=== PATIENT | male | born 1975 | race Hispanic/Latino ===

== ENCOUNTER 2018-03-16 14:35 | Emergency (ER) | payer SELFPAY ==
[2018-03-16] MEDS ORDERED: MORPHINE 4 MG/ML SYR ONE (15:31)
[2018-03-16] MEDS ORDERED: NA CHLORIDE 0.9% 1,000 ML ONE (15:31)
[2018-03-16] MEDS ORDERED: ONDANSETRON 4 MG/2 ML VIAL ONE (15:31)
[2018-03-16 15:56] LABS: Absolute Lymphocytes (CBC) 1.6 K/uL (0.7-4.9); Absolute Monocytes 0.7 K/uL (0.1-1.3); Absolute Neutrophil 7.7 K/uL (1.8-8.0); Eosinophils % 1.2 % (0-4.4); Hematocrit 47.9 % (39.6-49.0); Lymphocytes % 15.7 % (15.3-44.8); MCH 29.9 pg (27.0-35.0); MCV 90.5 fL (80-100); MPV 8.2 fL (7.6-11.3); Monocytes % 6.5 % (3.3-12.3)
[2018-03-16 16:10] LABS: ALT/SGPT 29 U/L (12-78); AST/SGOT 12 U/L (15-37); Albumin 3.6 g/dL (3.4-5.0); Alkaline Phosphatase 95 U/L (45-117); Amylase Level 17 U/L (25-115); BUN Blood Urea Nitrogen 12 mg/dL (7-18); Bicarbonate 27 mmol/L (21-32); Bilirubin Direct < 0.1 mg/dL (0-0.2); Bilirubin Total 0.4 mg/dL (0.2-1.0); Glucose Level 310 mg/dL (74-106); Lipase 87 U/L (73-393); Potassium 3.7 mmol/L (3.5-5.1); Protein, Total 7.6 g/dL (6.4-8.2); Sodium Level 135 mmol/L (136-145)
[2018-03-16 16:45] LABS: Blood Morphology Comment NOT SEEN (NOT SEEN); Platelet Estimate ADEQ
[2018-03-16 16:46] LABS: Urine Blood NEGATIVE (NEG); Urine Glucose 3+ (NEG); Urine Protein NEGATIVE (NEG); Urine pH 5.5 (5.0-7.0)
[2018-03-16 16:46] LABS: Urine Bacteria <20 /HPF (NONE SEEN); Urine Culture Reflex Order NOT NEEDED; Urine RBC <5 /HPF (NONE SEEN)
--- NOTE | 2018-03-16 17:56 | RAD REPORT ---
EXAM DESCRIPTION: CT - Abdomen Pelvis W Contrast - 03/16/2018 5:47 pm CLINICAL HISTORY: Diarrhea, vomiting, abdominal pain in the right upper quadrant and right lower blanca drant COMPARISON: None. TECHNIQUE: Biphasic, helical CT imaging of the abdomen and pelvis was performed following 100 ml non -ionic IV contrast. Oral contrast was given. All CT scans are performed using dose optimization technique as appropriate and may include automated exposure control or mA/KV adjustment according to patient size. FINDINGS: No suspicious findings in the lung bases. No pericardial thickening or effusion. Liver shows diffuse fatty infiltration pattern with no focal liver lesion. No spleen or pancreatic ac eduar finding. Gallbladder and biliary tree are also without suspicious finding. Gallstones can be occu lt CT imaging. Symmetric renal function is seen with no hydronephrosis or suspicious renal mass. No pyelonephritis o r acute renal parenchymal process. Urinary bladder, prostate gland and seminal vesicles are normal. N o adrenal abnormality. Anglin of the stomach are prominent likely due to limited oral contrast within the lumen. No edema or stranding in this region. Large and small bowel show no acute findings. Normal appendix is identified . No free air, free fluid or inflammatory stranding. No hernia, mass or bulky lymphadenopathy. No suspicious bony findings. IMPRESSION: Contrast enhanced CT abdomen and pelvis imaging shows no acute process. Fatty infiltration of the liver.
--- NOTE | 2018-03-16 19:02 | EDPHYS ---
Physician Documentation [facility] Name: Patric Kendall Age: 42 yrs Sex: Male : 1975 Arrival Date: 03/16/2018 Time: 14:38 Bed 17 Private MD: None, None ED Physician Flynn Villalta HPI: 03/16 15:14 This 42 yrs old Male presents to ER via Ambulatory with complaints of rh1 Nausea/Vomiting/Diarrhea, Weakness, Dizziness, Fever. 15:14 The patient presents to the emergency department with nausea, vomiting, 0 times today, rh1 2 times since yesterday, described as clear fluid, diarrhea, 1 times today, 4 times since yesterday, abdominal pain, of the umbilical area, described as steady, and does not radiate. Onset: The symptoms/episode began/occurred 3 day(s) ago. Possible causes: unknown, family member x 1 at home with diarrhea; visited [place] last weekend. The symptoms are aggravated by nothing. The symptoms are alleviated by nothing. Associated signs and symptoms: Pertinent positives: abdominal pain, anorexia, diarrhea, fever, nausea, vomiting, Pertinent negatives: dysuria, GI bleeding. Severity of symptoms: At their worst the symptoms were moderate in the emergency department the symptoms are unchanged. The patient has not experienced similar symptoms in the past. The patient has not recently seen a physician. Pt. reports began with abdominal pain and diarrhea approx. 3 days ago. His frequency of diarrhea has decreased, and has had single episode this am. He also had N/V, most recently yesterday, and has kept a small amount of liquid down today. Yesterday and today he has had fever, t - max at 101.8. Denies any hematemesis, blood in stools, urinary symptoms, chest pain, SOB.. Historical: - Allergies: 15:02 No Known Allergies; aj1 - Home Meds: 15:02 None [Active]; aj1 - PMHx: 15:02 None; aj1 - PSHx: 15:02 None; aj1 - Immunization history:: Adult Immunizations up to date. - Social history:: Smoking status: Patient/guardian denies using tobacco, Patient uses alcohol, weekly. claims drinking about a 6 pack/day. - Ebola Screening: : Patient denies travel to an Ebola-affected area in the 21 days before illness onset. ROS: 15:14 Cardiovascular: Negative for chest pain, palpitations, and edema, Respiratory: Negative rh1 for shortness of breath, cough, wheezing, and pleuritic chest pain. 15:14 Constitutional: Positive for fever, malaise, poor PO intake, Negative for 15:14 Neck: Negative for pain with movement, stiffness. 15:14 Abdomen/GI: Positive for abdominal pain, nausea, vomiting, and diarrhea, anorexia, Negative for hematemesis, black/tarry stool, rectal bleeding. 15:14 Back: Negative for decreased range of motion, pain at rest, pain with movement, radiated pain. 15:14 : Negative for urinary symptoms, small amounts. 15:14 Skin: Negative for diaphoresis, rash. 15:14 Neuro: Positive for dizziness, Negative for numbness, syncope, near syncope, tingling, weakness. 15:14 Eyes: Negative for blurry vision. rh1 Exam: 15:14 Constitutional: This is a well developed, well nourished patient who is awake, alert, rh1 and in no acute distress. Head/Face: Normocephalic, atraumatic. Neck: Trachea midline, and no cervical lymphadenopathy. Supple, full range of motion without nuchal rigidity. No Meningismus. Chest/axilla: Normal chest wall appearance and motion. Nontender with no deformity. No lesions are appreciated. Cardiovascular: Regular rate and rhythm with a normal S1 and S2. No gallops, murmurs, or rubs. No JVD. No pulse deficits. Respiratory: Lungs have equal breath sounds bilaterally, clear to auscultation. No rales, rhonchi or wheezes noted. No increased work of breathing. 15:14 Back: No spinal tenderness. No costovertebral tenderness. Full range of motion. Skin: Warm, dry with normal turgor. Normal color with no rashes, no lesions, and no evidence of cellulitis. 15:14 Abdomen/GI: Inspection: abdomen appears normal, bruising, is not seen, distension, is not seen, Bowel sounds: normal, in all quadrants, active, all quadrants, Palpation: soft, in all quadrants, mild abdominal tenderness, in the right upper quadrant and left upper quadrant, moderate abdominal tenderness, in the epigastric area, umbilical area, right lower quadrant and left lower quadrant, rebound tenderness, is not appreciated, involuntary guarding, is not appreciated, Indicators: McBurney's point is not tender, Hyman's sign is negative, Rovsing's sign is negative. 15:14 Neuro: Orientation: is normal, to person, place \T\ time. Mentation: is normal, lucid, able to follow commands, Motor: is normal, moves all fours, strength is 5/5 in all extremities, Sensation: is normal, no obvious gross deficits, numbness, is not appreciated, tingling, is not appreciated, Gait: is steady, at a normal pace, without difficulty. Vital Signs: 15:02 BP 129 / 90; Pulse 86; Resp 24; Temp 98.8; Pulse Ox 96% on R/A; Weight 97.07 kg; Height aj1 5 ft. 6 in. (167.64 cm); Pain 8/10; 16:10 BP 137 / 93; Pulse 80; Resp 16; Pulse Ox 97% on R/A; Pain 6/10; em 17:23 BP 113 / 74; Pulse 71; Resp 16; Pulse Ox 99% on R/A; Pain 0/10; em 18:12 BP 128 / 90; Pulse 72; Resp 18; Pulse Ox 100% on R/A; Pain 0/10; em 19:00 BP 133 / 88; Pulse 71; Resp 16; Temp 98(O); Pulse Ox 97% on R/A; Pain 0/10; bs1 15:02 Body Mass Index 34.54 (97.07 kg, 167.64 cm) aj1 MDM: 15:14 Patient medically screened. rh1 16:44 Response to treatment: the patient's symptoms have markedly improved after treatment, rh1 resting with eyes closed, no pain at this time. 18:54 Data reviewed: vital signs, nurses notes, lab test result(s), radiologic studies, CT rh1 scan, I have discussed the patient's presentation/case with the attending Emergency Department Physician; and as a result, I will discharge patient. Data interpreted: Pulse oximetry: on room air is 100 %. Interpretation: normal. Counseling: I had a detailed discussion with the patient and/or guardian regarding: the historical points, exam findings, and any diagnostic results supporting the discharge/admit diagnosis, lab results, radiology results, the need for outpatient follow up, a family practitioner, to return to the emergency department if symptoms worsen or persist or if there are any questions or concerns that arise at home. ED course: tolerates PO without difficulty, and reports no B[place], dizziness, abdominal pain, no further episodes of diarrhea; discussed elevated glucose, and dx of DM; we discussed diagnosis, and necessary dietary changes, treatment options including medications, and stressed the importance of establishing care with a PCP for continued follow up; reports she has several family members with DM, and is familiar with treatment; family practice clinic information provided. 03/16 15:23 Order name: Amylase, Serum; Complete Time: 16:15 1 03/16 15:23 Order name: Basic Metabolic Panel; Complete Time: 16:15 1 03/16 15:23 Order name: CBC with Diff; Complete Time: 16:50 1 03/16 15:23 Order name: Creatinine for Radiology; Complete Time: 16:15 1 03/16 15:23 Order name: Hepatic Function; Complete Time: 16:15 [facility] 03/16 15:23 Order name: Lipase; Complete Time: 16:15 [facility] 03/16 15:23 Order name: Urine Microscopic Only; Complete Time: 16:50 1 03/16 15:24 Order name: CT Abd/Pelvis - W/Contrast; Complete Time: 17:57 1 03/16 16:00 Order name: Glucose, Ancillary Testing; Complete Time: 16:15 [facility] 03/16 16:14 Order name: Urine Dipstick--Ancillary (enter results); Complete Time: 16:50 1 03/16 16:17 Order name: Acetone, Serum; Complete Time: 16:31 1 03/16 16:45 Order name: Manual Differential EDMS 03/16 15:23 Order name: IV Saline Lock; Complete Time: 15:50 1 03/16 15:23 Order name: Labs collected and sent; Complete Time: 15:49 1 03/16 15:23 Order name: Urine Dipstick-Ancillary (obtain specimen); Complete Time: 15:49 1 03/16 17:58 Order name: PO challenge; Complete Time: 18:11 rh1 Administered Medications: 15:45 Drug: NS 0.9% 1000 ml Route: IV; Rate: 1000 ml; Site: right antecubital; em 17:02 Follow up: IV Status: Completed infusion; IV Intake: 1000ml em 15:50 Drug: Zofran 4 mg Route: IVP; Site: right antecubital; ss 17:03 Follow up: Response: No adverse reaction; Nausea is decreased em 15:50 Drug: morphine 4 mg Route: IVP; Site: right antecubital; ss 17:03 Follow up: Response: No adverse reaction; Pain is decreased em Point of Care Testing: Blood Glucose: 16:02 Blood Glucose: 273 mg/dL; em Ranges: Critical Glucose Levels:Adult <50 mg/dl or >400 mg/dl <40 mg/dl or >180 mg/dl Disposition: 03/16/18 19:01 Discharged to Home. Impression: Unspecified abdominal pain, Nausea and vomiting, Diarrhea, unspecified, Fatty (change of) liver, not elsewhere classified, diabetes mellitus. - Condition is Stable. - Discharge Instructions: Abdominal Pain, Adult, Food Choices to Help Relieve Diarrhea, Adult, Type 2 Diabetes Mellitus, Adult, Diarrhea, Nausea and Vomiting. - Prescriptions for Metformin 500 mg Oral Tablet - take 1 tablet by ORAL route once daily for 7 days Then take 1 tablet with morning meals AND evening meals; 21 tablet. - Medication Reconciliation Form, Thank You Letter, Antibiotic Education, Prescription Opioid Use form. - Follow up: Private Physician; When: 1 - 2 days; Reason: Recheck today's complaints, Continuance of care, Re-evaluation by your physician. Follow up: Emergency Department; When: As needed; Reason: Fever > 102 F, If symptoms return, Trouble breathing, Worsening of condition. - Problem is new. - Symptoms have improved. Addendum: 03/20/2018 07:00 Co-signature as Attending Physician, Flynn Villalta MD. r n Signatures: Dispatcher [employer] Maria Eugenia Issa RN RN aj1 Kane Mccoy, SHINE WORKER SHINE WORKER Flynn Rocha MD MD rn Smirch, Shelby, RN RN ss Jones, Rachel, CLEMENT TILE EDGER 1 Jerrell Reardon RN RN bp Corrections: (The following items were deleted from the chart) 03/16 15:45 15:02 Social history: Smoking status: Patient/guardian denies using tobacco, ace 1 19:18 19:01 03/16/2018 19:01 Discharged to Home. Impression: Unspecified abdominal pain; bp Nausea and vomiting; Diarrhea, unspecified; Fatty (change of) liver, not elsewhere classified; diabetes mellitus. Condition is Stable. Forms are Medication Reconciliation Form, Thank You Letter, Antibiotic Education, Prescription Opioid Use. Follow up: Private Physician; When: 1 - 2 days; Reason: Recheck today's complaints, Continuance of care, Re-evaluation by your physician. Follow up: Emergency Department; When: As needed; Reason: Fever > 102 F, If symptoms return, Trouble breathing, Worsening of condition. Problem is new. Symptoms have improved. rh1
--- NOTE | 2018-03-16 19:02 | ER ---
Nurse's Notes [facility] Name: Patric Kendall Age: 42 yrs Sex: Male : 1975 Arrival Date: 03/16/2018 Time: 14:38 Bed 17 Private MD: None, None Diagnosis: Unspecified abdominal pain;Nausea and vomiting;Diarrhea, unspecified;Fatty (change of) liver, not elsewhere classified;diabetes mellitus Presentation: 03/16 15:00 Presenting complaint: states: "For 3 days he has been having diarrhea and throwing aj1 up and he has no appetite. Yesterday he started running fever and having a really bad headache and abdominal pain." Reports abdominal pain the umbilical area, dizziness. Transition of care: patient was not received from another setting of care. Onset of symptoms was March 13, 2018. Risk Assessment: Do you want to hurt yourself or someone else? Patient reports no desire to harm self or others. Initial Sepsis Screen: Does the patient meet any 2 criteria? No. Patient's initial sepsis screen is negative. Does the patient have a suspected source of infection? No. Patient's initial sepsis screen is negative. Care prior to arrival: None. 15:00 Method Of Arrival: Ambulatory aj1 15:00 Acuity: JAVAD 3 aj1 Triage Assessment: 15:02 General: Appears uncomfortable, Behavior is cooperative, flat. Pain: Pain currently is aj1 8 out of 10 on a pain scale. GI: Reports diarrhea, nausea, vomiting. Historical: - Allergies: 15:02 No Known Allergies; aj1 - Home Meds: 15:02 None [Active]; aj1 - PMHx: 15:02 None; aj1 - PSHx: 15:02 None; aj1 - Immunization history:: Adult Immunizations up to date. - Social history:: Smoking status: Patient/guardian denies using tobacco, Patient uses alcohol, weekly. claims drinking about a 6 pack/day. - Ebola Screening: : Patient denies travel to an Ebola-affected area in the 21 days before illness onset. Screenin:25 Abuse screen: Denies threats or abuse. Nutritional screening: No deficits noted. em Tuberculosis screening: No symptoms or risk factors identified. Fall Risk None identified. Assessment: 15:24 General: Appears in no apparent distress. distressed, Behavior is calm, cooperative, em Reports fever for 2-3 days. Pain: Complains of pain in abdomen Pain radiates to back Pain currently is 8 out of 10 on a pain scale. Quality of pain is described as squeezing, Pain began 2-3 days ago. Neuro: Level of Consciousness is awake, alert, obeys commands, Oriented to person, place, time, situation. Cardiovascular: Capillary refill < 3 seconds Patient's skin is warm and dry. Respiratory: Airway is patent Respiratory effort is even, unlabored, Respiratory pattern is regular, symmetrical. GI: Abdomen is flat, Reports diarrhea, nausea, Patient currently denies vomiting. : Urine is clear. EENT: No signs and/or symptoms were reported regarding the EENT system. Derm: Skin is intact, Skin is pink, warm \\T\\ dry. Musculoskeletal: Range of motion: intact in all extremities. 15:30 General: The previous assessment is accurate. Call light remains within reach. . ss 16:30 Reassessment: Patient appears in no apparent distress at this time. Patient and/or em family updated on plan of care and expected duration. Pain level reassessed. Patient is alert, oriented x 3, equal unlabored respirations, skin warm/dry/pink. Patient states feeling better. 17:05 Reassessment: Patient and/or family updated on plan of care and expected duration. Pain em level reassessed. Patient is alert, oriented x 3, equal unlabored respirations, skin warm/dry/pink. pending CT Patient denies pain at this time. 18:12 Reassessment: Patient appears in no apparent distress at this time. Patient and/or em family updated on plan of care and expected duration. Pain level reassessed. Patient is alert, oriented x 3, equal unlabored respirations, skin warm/dry/pink. Patient denies pain at this time. Patient states feeling better. Patient states symptoms have improved. 18:21 Reassessment: Patient appears in no apparent distress at this time. CLEMENT Hurt at em bedside discussing POC. 19:10 Reassessment: Report received from GILBERT Middleton. bs1 19:10 General: Appears in no apparent distress. Behavior is calm, cooperative. Pain: Denies bs1 pain. Neuro: Level of Consciousness is awake, alert, obeys commands, Oriented to person, place, time, situation. Cardiovascular: Denies chest pain, shortness of breath, Heart tones S1 S2 present Capillary refill < 3 seconds Patient's skin is warm and dry. Respiratory: Airway is patent Respiratory effort is even, unlabored, Breath sounds are clear bilaterally. GI: Abdomen is flat, Bowel sounds present X 4 quads. : No signs and/or symptoms were reported regarding the genitourinary system. EENT: No signs and/or symptoms were reported regarding the EENT system. Derm: Skin is intact, Skin is pink, warm \\T\\ dry. normal. Musculoskeletal: Circulation, motion, and sensation intact. Capillary refill < 3 seconds, Range of motion: intact in all extremities. 19:16 Reassessment: PT D/C HOME AMBULATORY WITH FAMILY, DX WITH DM2 AND NAUSEA/VOMITING. bp Vital Signs: 15:02 BP 129 / 90; Pulse 86; Resp 24; Temp 98.8; Pulse Ox 96% on R/A; Weight 97.07 kg; Height aj1 5 ft. 6 in. (167.64 cm); Pain 8/10; 16:10 BP 137 / 93; Pulse 80; Resp 16; Pulse Ox 97% on R/A; Pain 6/10; em 17:23 BP 113 / 74; Pulse 71; Resp 16; Pulse Ox 99% on R/A; Pain 0/10; em 18:12 BP 128 / 90; Pulse 72; Resp 18; Pulse Ox 100% on R/A; Pain 0/10; em 19:00 BP 133 / 88; Pulse 71; Resp 16; Temp 98(O); Pulse Ox 97% on R/A; Pain 0/10; bs1 15:02 Body Mass Index 34.54 (97.07 kg, 167.64 cm) aj1 ED Course: 14:38 Patient arrived in ED. sb2 14:38 None, None is Private Physician. sb2 15:02 Triage completed. aj1 15:02 Arm band placed on Patient placed in an exam room. aj1 15:09 Kane Mccoy LVN is Primary Nurse. em 15:14 Licha Pacheco NP is PHCP. rh1 15:14 Flynn Villalta MD is Attending Physician. rh1 15:25 Patient has correct armband on for positive identification. Placed in gown. Bed in low em position. Call light in reach. Side rails up X2. Adult w/ patient. 17:47 CT completed. Patient tolerated procedure well. Patient moved back from CT. bq 17:48 CT Abd/Pelvis - W/Contrast In Process Unspecified. EDMS 18:12 No provider procedures requiring assistance completed. em 19:16 IV discontinued, intact, bleeding controlled, No redness/swelling at site. Pressure bp dressing applied. Administered Medications: 15:45 Drug: NS 0.9% 1000 ml Route: IV; Rate: 1000 ml; Site: right antecubital; em 17:02 Follow up: IV Status: Completed infusion; IV Intake: 1000ml em 15:50 Drug: Zofran 4 mg Route: IVP; Site: right antecubital; ss 17:03 Follow up: Response: No adverse reaction; Nausea is decreased em 15:50 Drug: morphine 4 mg Route: IVP; Site: right antecubital; ss 17:03 Follow up: Response: No adverse reaction; Pain is decreased em Point of Care Testing: Blood Glucose: 16:02 Blood Glucose: 273 mg/dL; em Ranges: Intake: 17:02 IV: 1000ml; Total: 1000ml. em Outcome: 19:01 Discharge ordered by . rh1 19:17 Discharged to home ambulatory, with family. bp 19:17 Condition: stable 19:17 Discharge instructions given to patient, family, Instructed on discharge instructions, follow up and referral plans. medication usage, Demonstrated understanding of instructions, follow-up care, medications, Prescriptions given X 1. 19:18 Patient left the ED. bp Signatures: Dispatcher [employer] EDIA Maria Eugenia Ramirez RN RN aj1 Sigrid Hoang bq Kane Mccoy, ELECTRICAL PLUMBING SUPERVISOR ELECTRICAL PLUMBING SUPERVISOR em Fatmata Perry RN RN ss Licha Pacheco, DECAL APPLIER DECAL APPLIER rh1 Jerrell Reardon RN RN bp Roxanne Sanchez RN RN bs1 Cynthia Porras sb2 Corrections: (The following items were deleted from the chart) 15:45 15:02 Social history: Smoking status: Patient/guardian denies using tobacco, aj1 rh1 17:07 17:05 Reassessment: Patient and/or family updated on plan of care and expected em duration. Pain level reassessed. Patient is alert, oriented x 3, equal unlabored respirations, skin warm/dry/pink. Patient denies pain at this time. em
== END 2018-03-16 19:18 | disposition home or self-care (01) ==
LOC: ER 14:35
DX: R11.2 Nausea with vomiting, unspecified (principal); R19.7 Diarrhea, unspecified; K76.0 Fatty (change of) liver, not elsewhere classified; E11.9 Type 2 diabetes mellitus without complications
CPT/HCPCS: 36415; 74177; 80048; 80076; 81003; 81015; 82010; 82150; 82962; 83690; 85025; 96361; 96374; 96375; 99284; J2405; J7030; Q9967

== ENCOUNTER 2019-10-07 08:28 | Emergency (ER) | payer SELFPAY ==
[2019-10-07] MEDS ORDERED: IBUPROFEN 200 MG TAB PO ONE (09:44)
--- NOTE | 2019-10-07 09:54 | RAD REPORT ---
EXAM DESCRIPTION: Harris Zimmerman (2 Views)10/07/2019 9:45 am CLINICAL HISTORY: Cough COMPARISON: 2012 FINDINGS: The lungs appear clear of acute infiltrate. The heart is normal size IMPRESSION: No acute abnormalities displayed
[2019-10-07] MEDS ORDERED: OSELTAMIVIR 75 MG CAP ONE (10:32)
--- NOTE | 2019-10-07 10:34 | EDPHYS ---
Physician Documentation [facility] Name: Patric Kendall Age: 44 yrs Sex: Male : 1975 Arrival Date: 10/07/2019 Time: 08:31 Bed 19 Private MD: ED Physician Flynn Villalta HPI: 10/07 10:31 This 44 yrs old Male presents to ER via Wheelchair with complaints of Fever, kb Dizziness, Body Aches. 10:32 The patient or guardian reports cough, that is intermittent, described as mild, flu kb symptoms, low-grade fever, myalgias. Onset: The symptoms/episode began/occurred yesterday. Severity of symptoms: At their worst the symptoms were moderate, in the emergency department the symptoms are unchanged. Modifying factors: The symptoms are alleviated by nothing, the symptoms are aggravated by nothing. Associated signs and symptoms: Pertinent positives: fever. The patient has not experienced similar symptoms in the past. The patient has not recently seen a physician. Historical: - Allergies: 09:05 No Known Allergies; aa5 - PMHx: 09:05 None; aa5 - PSHx: 09:05 None; aa5 - Immunization history:: Immunization history: Flu vaccine is not up to date. - Social history:: Smoking status: Patient denies any tobacco usage or history of. - Ebola Screening: : No symptoms or risks identified at this time. ROS: 10:27 ENT: Negative for injury, pain, and discharge, Neck: Negative for injury, pain, and kb swelling, Cardiovascular: Negative for chest pain, palpitations, and edema, Abdomen/GI: Negative for abdominal pain, nausea, vomiting, diarrhea, and constipation, Back: Negative for injury and pain, MS/Extremity: Negative for injury and deformity, Skin: Negative for injury, rash, and discoloration. 10:27 Constitutional: Positive for body aches, chills, fatigue, fever, malaise. 10:27 Respiratory: Positive for cough. 10:27 Neuro: Positive for headache. Exam: 10:27 Constitutional: This is a well developed, well nourished patient who is awake, alert, kb and in no acute distress. Head/Face: Normocephalic, atraumatic. ENT: Nares patent. No nasal discharge, no septal abnormalities noted. Tympanic membranes are normal and external auditory canals are clear. Oropharynx with no redness, swelling, or masses, exudates, or evidence of obstruction, uvula midline. Mucous membranes moist. Neck: Trachea midline, no thyromegaly or masses palpated, and no cervical lymphadenopathy. Supple, full range of motion without nuchal rigidity, or vertebral point tenderness. No Meningismus. Chest/axilla: Normal chest wall appearance and motion. Nontender with no deformity. No lesions are appreciated. Cardiovascular: Regular rate and rhythm with a normal S1 and S2. No gallops, murmurs, or rubs. Normal PMI, no JVD. No pulse deficits. Respiratory: Lungs have equal breath sounds bilaterally, clear to auscultation and percussion. No rales, rhonchi or wheezes noted. No increased work of breathing, no retractions or nasal flaring. Abdomen/GI: Soft, non-tender, with normal bowel sounds. No distension or tympany. No guarding or rebound. No evidence of tenderness throughout. Skin: Warm, dry with normal turgor. Normal color with no rashes, no lesions, and no evidence of cellulitis. MS/ Extremity: Pulses equal, no cyanosis. Neurovascular intact. Full, normal range of motion. Neuro: Awake and alert, GCS 15, oriented to person, place, time, and situation. Cranial nerves II-XII grossly intact. Motor strength 5/5 in all extremities. Sensory grossly intact. Cerebellar exam normal. Normal gait. Vital Signs: 09:05 BP 112 / 72; Pulse 93; Resp 18 S; Temp 101.2(O); Pulse Ox 100% on R/A; Weight 88.9 kg aa5 (R); Height 5 ft. 6 in. (167.64 cm) (R); Pain 9/10; 10:35 Temp 99.2(O); ss 09:05 Body Mass Index 31.63 (88.90 kg, 167.64 cm) aa5 MDM: 09:27 Patient medically screened. kb 10:27 Data reviewed: vital signs, nurses notes. Data interpreted: Pulse oximetry: on room air kb is 100 %. Interpretation: normal. Counseling: I had a detailed discussion with the patient and/or guardian regarding: the historical points, exam findings, and any diagnostic results supporting the discharge/admit diagnosis, lab results, radiology results, the need for outpatient follow up, a family practitioner, to return to the emergency department if symptoms worsen or persist or if there are any questions or concerns that arise at home. 10/07 09:14 Order name: Flu; Complete Time: 10:15 kb 10/07 09:08 Order name: Chest Pa And Lat (2 Views) XRAY; Complete Time: 09:57 aa5 Administered Medications: 09:50 Drug: Ibuprofen 600 mg Route: PO; ss 10:33 Follow up: Response: No adverse reaction; Temperature is decreased ss 10:32 Drug: Tamiflu 75 mg Route: PO; ss 10:33 Follow up: Response: Medication administered at discharge. ss Disposition: 17:13 Co-signature as Attending Physician, Flynn Villalta MD. rn Disposition: 10/07/19 10:33 Discharged to Home. Impression: Influenza due to identified novel influenza A virus. - Condition is Stable. - Discharge Instructions: Influenza, Adult, [id number], Viral Respiratory Infection, [id number]. - Prescriptions for Tamiflu 75 mg Oral Capsule - take 1 capsule by ORAL route every 12 hours for 5 days; 10 capsule. - Medication Reconciliation Form, Thank You Letter, Antibiotic Education, Prescription Opioid Use, Work release form, Family Work Release form. - Follow up: Emergency Department; When: As needed; Reason: Worsening of condition. Follow up: Private Physician; When: 2 - 3 days; Reason: Recheck today's complaints, Continuance of care, Re-evaluation by your physician. Signatures: Dispatcher [employer] EDWV Selena Johnson, SUPERINTENDENT [employer]-C SUPERINTENDENT [employer]AL-Ckb Flynn Villalta MD MD rn Calderon, Audri, RN RN aa5 Fatmata Perry RN RN ss Corrections: (The following items were deleted from the chart) 10:55 10:33 10/07/2019 10:33 Discharged to Home. Impression: Influenza due to identified ss novel influenza A virus. Condition is Stable. Forms are Medication Reconciliation Form, Thank You Letter, Antibiotic Education, Prescription Opioid Use. Follow up: Emergency Department; When: As needed; Reason: Worsening of condition. Follow up: Private Physician; When: 2 - 3 days; Reason: Recheck today's complaints, Continuance of care, Re-evaluation by your physician. kb
--- NOTE | 2019-10-07 10:34 | ER ---
Nurse's Notes [facility] Name: Patric Kendall Age: 44 yrs Sex: Male : 1975 Arrival Date: 10/07/2019 Time: 08:31 Bed 19 Private MD: Diagnosis: Influenza due to identified novel influenza A virus Presentation: 10/07 09:03 Presenting complaint: Patient states: productive cough, headache, chills, and fever aa5 that began Sunday. Transition of care: patient was not received from another setting of care. Onset of symptoms was September 2019. Risk Assessment: Do you want to hurt yourself or someone else? Patient reports no desire to harm self or others. Initial Sepsis Screen: Does the patient meet any 2 criteria? HR > 90 bpm. Does the patient have a suspected source of infection? Yes: Productive cough/pneumonia. Care prior to arrival: None. 09:03 Method Of Arrival: Wheelchair aa5 09:03 Acuity: JAVAD 3 aa5 Historical: - Allergies: 09:05 No Known Allergies; aa5 - PMHx: 09:05 None; aa5 - PSHx: 09:05 None; aa5 - Immunization history:: Immunization history: Flu vaccine is not up to date. - Social history:: Smoking status: Patient denies any tobacco usage or history of. - Ebola Screening: : No symptoms or risks identified at this time. Screenin:35 Abuse screen: Denies threats or abuse. Denies injuries from another. Nutritional ss screening: No deficits noted. Tuberculosis screening: Never had TB. Fall Risk None identified. Assessment: 09:35 General: Appears uncomfortable, ill, Behavior is calm, cooperative, Reports chills for ss 1-2 days, fever for 1-2 days, feeling ill for 1-2 days, fatigue for 1-2 days. Pain: Complains of pain in general body aches Pain currently is 9 out of 10 on a pain scale. Quality of pain is described as aching. Neuro: Level of Consciousness is awake, alert, obeys commands, Oriented to person, place, time, situation, Speech is normal, Facial symmetry appears normal. Neuro: Reports dizziness. Cardiovascular: Capillary refill < 3 seconds is brisk in bilateral fingers. Respiratory: Airway is patent Respiratory effort is even, unlabored, Respiratory pattern is regular, symmetrical. GI: Patient currently denies diarrhea, nausea, vomiting. : No signs and/or symptoms were reported regarding the genitourinary system. EENT: Oral mucosa is moist. Derm: Skin is intact, is healthy with good turgor, Skin is pink, warm \T\ dry. normal. Musculoskeletal: Circulation, motion, and sensation intact. Range of motion: intact in all extremities. 10:54 Reassessment: Patient appears in no apparent distress at this time. Patient and/or ss family updated on plan of care and expected duration. Pain level reassessed. Vital Signs: 09:05 BP 112 / 72; Pulse 93; Resp 18 S; Temp 101.2(O); Pulse Ox 100% on R/A; Weight 88.9 kg aa5 (R); Height 5 ft. 6 in. (167.64 cm) (R); Pain 9/10; 10:35 Temp 99.2(O); ss 09:05 Body Mass Index 31.63 (88.90 kg, 167.64 cm) aa5 ED Course: 08:31 Patient arrived in ED. ag5 08:34 Sel[facility]C [facility] kb 08:34 Flynn Villalta MD is Attending Physician. kb 09:03 Arm band placed on. aa5 09:04 Triage completed. aa5 09:35 Fatmata Perry, CORTNEY is Primary Nurse. ss 09:35 Patient has correct armband on for positive identification. Bed in low position. Call ss light in reach. 09:38 Chest Pa And Lat (2 Views) XRAY In Process Unspecified. EDMS 10:54 No provider procedures requiring assistance completed. Patient did not have IV access ss during this emergency room visit. Administered Medications: 09:50 Drug: Ibuprofen 600 mg Route: PO; ss 10:33 Follow up: Response: No adverse reaction; Temperature is decreased ss 10:32 Drug: Tamiflu 75 mg Route: PO; ss 10:33 Follow up: Response: Medication administered at discharge. ss Outcome: 10:33 Discharge ordered by . kb 10:54 Discharged to home ambulatory. ss 10:54 Condition: good 10:54 Discharge instructions given to patient, family, Instructed on discharge instructions, follow up and referral plans. medication usage, Demonstrated understanding of instructions, follow-up care, medications, Prescriptions given X 1. 10:55 Patient left the ED. ss Signatures: Dispatcher [employer] Selena Burciaga, SHEREE-C BELL PERSON-Neeru Gavin, RN RN aa5 Fatmata Perry RN RN ss Han Myrick ag5
[2019-10-07 13:18] VITALS: BP 112/72; O2SAT 100
[2019-10-07 13:22] VITALS: TEMP 99.2
== END 2019-10-07 10:55 | disposition home or self-care (01) ==
LOC: ER 08:28
DX: J09.X2 Influenza due to identified novel influenza A virus with other respiratory manifestations (principal)
CPT/HCPCS: 71046; 87804; 99283

== ENCOUNTER 2021-02-11 13:53 | Emergency (ER) | payer SELFPAY ==
[2021-02-11 15:51] LABS: Absolute Lymphocytes (CBC) 1.4 K/uL (0.7-4.9); Basophils % 0.6 % (0-1.3); Hematocrit 47.5 % (39.6-49.0); Lymphocytes % 9.6 % (15.3-44.8); RBC Red Blood Cell Count 5.23 M/uL (4.33-5.43)
[2021-02-11] MEDS ORDERED: FAMOTIDINE 20 MG/2 ML VIAL IV ONE (15:52)
[2021-02-11] MEDS ORDERED: NA CHLORIDE 0.9% 1,000 ML ONE ×2 (15:52→17:24)
[2021-02-11] MEDS ORDERED: ONDANSETRON 4 MG/2 ML VIAL ONE (15:52)
[2021-02-11 15:55] LABS: Protime INR 1.15
[2021-02-11 16:08] LABS: ALT/SGPT 35 U/L (12-78); AST/SGOT 14 U/L (15-37); Albumin 4.9 g/dL (3.4-5.0); Alkaline Phosphatase 75 U/L (45-117); BUN Blood Urea Nitrogen 15 mg/dL (7-18); Bicarbonate 29 mmol/L (21-32); Bilirubin Direct 0.1 mg/dL (0-0.2); Bilirubin Total 0.6 mg/dL (0.2-1.0); Glucose Level 202 mg/dL (74-106); Magnesium 2.1 mg/dL (1.8-2.4); Potassium 4.4 mmol/L (3.5-5.1); Protein, Total 8.8 g/dL (6.4-8.2); Sodium Level 134 mmol/L (136-145); Troponin (Emerg Dept Use Only) < 0.02 ng/mL (0.0-0.045)
--- NOTE | 2021-02-11 17:11 | RAD REPORT ---
EXAM DESCRIPTION: Harris Zimmerman (2 Views)02/11/2021 4:44 pm CLINICAL HISTORY: Cough COMPARISON: 2019 FINDINGS: The lungs appear clear of acute infiltrate. The heart is normal size IMPRESSION: No acute abnormalities displayed
[2021-02-11 17:49] LABS: Urine Blood Negative (Negative); Urine Glucose Negative (Negative); Urine Protein Negative (Negative); Urine Specific Gravity 1.015 (1.005-1.030)
--- NOTE | 2021-02-11 17:55 | EDPHYS ---
Physician Documentation [facility] Name: Patric Kendall Age: 45 yrs Sex: Male : 1975 Arrival Date: 02/11/2021 Time: 13:59 Bed 14 Private MD: ED Physician Umang Spence HPI: 02/11 15:25 This 45 yrs old Male presents to ER via Ambulatory with complaints of Cough, cp Vomiting, Nausea. 15:45 The patient or guardian reports cough. cp 15:45 Associated signs and symptoms: Pertinent positives: nausea, vomiting, general weakness, cp Pertinent negatives: chest pain, diarrhea, fever, abdominal pain. Patient reports symptoms started 4 days ago. Historical: - Allergies: 14:09 No Known Allergies; ll1 - PMHx: 14:09 Diabetes - NIDDM; Hypertension; High Cholesterol; ll1 - PSHx: 14:09 None; ll1 - Immunization history:: Flu vaccine is not up to date. - Social history:: Smoking status: Patient denies any tobacco usage or history of. ROS: 15:30 Constitutional: Positive for body aches, Negative for chills, fever. cp 15:30 Eyes: Negative for injury, pain, redness, and discharge. cp 15:30 ENT: Positive for sinus congestion, sore throat, Negative for drainage from ear(s), ear pain, difficulty swallowing, difficulty handling secretions. 15:30 Cardiovascular: Negative for chest pain. 15:30 Respiratory: Positive for cough, Negative for shortness of breath, wheezing. 15:30 Abdomen/GI: Positive for nausea and vomiting, Negative for abdominal pain, diarrhea, constipation. 15:30 : Negative for urinary symptoms. 15:30 Skin: Negative for cellulitis, rash. 15:30 Neuro: Positive for headache, general weakness, Negative for altered mental status. 15:30 All other systems are negative. Exam: 15:35 Constitutional: The patient appears in no acute distress, alert, awake, non-toxic, well cp developed, well nourished. 15:35 Head/Face: Normocephalic, atraumatic. cp 15:35 Eyes: Periorbital structures: appear normal, Conjunctiva: normal, no exudate, no injection, Sclera: no appreciated abnormality, Lids and lashes: appear normal, bilaterally. 15:35 ENT: External ear(s): are unremarkable, Ear canal(s): are normal, clear, TM's: dullness, bilaterally, Nose: is normal, Mouth: Lips: moist, Oral mucosa: moist, Posterior pharynx: Airway: no evidence of obstruction, patent, Tonsils: with erythema, no enlargement, no exudate, erythema, that is mild, exudate, is not appreciated. 15:35 Neck: ROM/movement: is normal, is supple, no meningismus, no nuchal rigidity, Lymph nodes: no appreciated lymphadenopathy. 15:35 Chest/axilla: Inspection: normal, Palpation: is normal, no crepitus, no tenderness. 15:35 Cardiovascular: Rate: tachycardic, Rhythm: regular. 15:35 Respiratory: the patient does not display signs of respiratory distress, Respirations: normal, no use of accessory muscles, no retractions, labored breathing, is not present, Breath sounds: are clear throughout, no decreased breath sounds, no stridor, no wheezing. 15:35 Abdomen/GI: Inspection: abdomen appears normal, Palpation: abdomen is soft and non-tender, in all quadrants. 15:35 Skin: cellulitis, is not appreciated, no rash present. 15:35 Neuro: Orientation: to person, place \T\ time. Mentation: is normal, Motor: moves all fours, strength is normal. 15:59 ECG was reviewed by the Attending Physician. cp Vital Signs: 14:06 BP 106 / 77; Pulse 115; Resp 17; Temp 98.5; Pulse Ox 97% ; Weight 90.72 kg; Height 5 ll1 ft. 7 in. (170.18 cm); Pain 7/10; 15:36 BP 124 / 86; Pulse 92; Resp 16; Pulse Ox 97% on R/A; Pain 7/10; hb 17:30 BP 122 / 82; Pulse 82; Resp 16; Pulse Ox 99% on R/A; hb 14:06 Body Mass Index 31.32 (90.72 kg, 170.18 cm) ll1 MDM: 15:10 Patient medically screened. cp 16:00 Differential Diagnosis: Bronchitis Influenza Viral Syndrome Pneumonia Other sepsis, UTI.cp 17:52 Data reviewed: vital signs, nurses notes, lab test result(s), EKG, radiologic studies, cp plain films. 17:52 Test interpretation: by ED physician or midlevel provider: ECG, plain radiologic cp studies. Counseling: I had a detailed discussion with the patient and/or guardian regarding: the historical points, exam findings, and any diagnostic results supporting the discharge/admit diagnosis, lab results, radiology results, to return to the emergency department if symptoms worsen or persist or if there are any questions or concerns that arise at home. Response to treatment: the patient's symptoms have markedly improved after treatment, and as a result, I will discharge patient. 17:53 ED course: VSS. Patient reports symptoms improved after IV fluids and meds. Will cp discharge to home for continued monitoring. 02/11 15:18 Order name: Basic Metabolic Panel 02/11 15:18 Order name: CBC with Diff 02/11 15:18 Order name: LFT's; Complete Time: 16:42 02/11 16:42 Interpretation: Normal except: AST 14; TP 8.8; GLOB 3.9. 02/11 15:18 Order name: Magnesium; Complete Time: 16:42 02/11 15:18 Order name: PT-INR; Complete Time: 16:42 02/11 15:18 Order name: Troponin (emerg Dept Use Only); Complete Time: 16:42 02/11 15:18 Order name: Strep; Complete Time: 16:42 02/11 15:19 Order name: Basic Metabolic Panel; Complete Time: 16:42 [facility] 02/11 16:42 Interpretation: Normal except: NA 134; GLUC 202; CRE 1.34; GFR 58. 02/11 15:19 Order name: CBC with Automated Diff; Complete Time: 16:42 [facility] 02/11 16:43 Interpretation: Normal except: WBC 14.50; MONICA% 82.1; LYM% 9.6; NEUT A 11.9. 02/11 16:33 Order name: Throat Culture [facility] 02/11 16:43 Order name: Urine Microscopic Only 02/11 17:08 Order name: SARS-COV-2 RT PCR; Complete Time: 17:12 [facility] 02/11 15:18 Order name: EKG; Complete Time: 15:19 02/11 15:18 Order name: Cardiac monitoring; Complete Time: 15:42 02/11 15:18 Order name: EKG - Nurse/Tech; Complete Time: 15:49 02/11 15:18 Order name: IV Saline Lock; Complete Time: 15:42 02/11 15:18 Order name: Labs collected and sent; Complete Time: 15:42 02/11 15:18 Order name: O2 Per Protocol; Complete Time: 15:42 02/11 15:18 Order name: O2 Sat Monitoring; Complete Time: 15:42 02/11 15:58 Order name: XRAY Chest Pa And Lat (2 Views); Complete Time: 17:12 02/11 17:12 Interpretation: Report reviewed. 02/11 16:43 Order name: Urine Dipstick-Ancillary (obtain specimen); Complete Time: 17:51 02/11 17:03 Order name: PO challenge; Complete Time: 17:15 02/11 17:49 Order name: Urine Dipstick-Ancillary EDMS EC:59 Rate is 93 beats/min. Rhythm is regular. CA interval is normal. QRS interval is normal. cp QT interval is normal. Interpreted by me. Reviewed by me. Administered Medications: 15:49 Drug: Zofran (Ondansetron) 4 mg Route: IVP; Site: right antecubital; hb 16:51 Follow up: Response: No adverse reaction hb 15:49 Drug: Pepcid (famotidine) 20 mg Route: IVP; Site: right antecubital; hb 16:51 Follow up: Response: No adverse reaction hb 15:50 Drug: NS 0.9% 1000 ml Route: IV; Rate: 1 bolus; Site: right antecubital; hb 16:51 Follow up: Response: No adverse reaction; IV Status: Completed infusion; IV Intake: hb 1000ml 17:15 Drug: NS 0.9% 1000 ml Route: IV; Rate: 1 bolus; Site: right antecubital; hb Disposition: 02/12 09:46 Co-signature as Attending Physician, Umang Spence MD I agree with the assessment and kdr plan of care. Disposition: 02/11/21 17:54 Discharged to Home. Impression: Acute bronchitis, Nausea and vomiting. - Condition is Stable. - Discharge Instructions: Acute Bronchitis, Adult, Nausea and Vomiting, Adult. - Prescriptions for Zofran 4 mg Oral Tablet - take 1 tablet by ORAL route every 12 hours As needed; 20 tablet. Tessalon Perles 100 mg Oral Capsule - take 2 capsule by ORAL route every 8 hours As needed; 30 capsule. Zithromax Z- Wilder 250 mg Oral Tablet - take 1 tablet by ORAL route as directed for 5 days Day 1 - take two (2) tablets one time. Day 2, 3, 4 , 5 take one (1) tablet once daily.; 6 tablet. - Medication Reconciliation Form, Thank You Letter, Antibiotic Education, Prescription Opioid Use, Work release form form. - Follow up: Private Physician; When: 2 - 3 days; Reason: Worsening of condition. - Problem is new. - Symptoms have improved. Signatures: Dispatcher [employer] EDMS Umang Spence MD MD kdr Yuri Roldan PA PA cp Bell Villalba RN RN hb Delia Blake RN RN ll1 Corrections: (The following items were deleted from the chart) 02/11 16:27 15:19 CORONAVIRUS+MR.LAB.BRZ ordered. EDNM EDMS 16:28 15:19 Influenza Screen (A \T\ B)+BA.LAB.BRZ ordered. EDNM EDMS 18:50 17:54 02/11/2021 17:54 Discharged to Home. Impression: Acute bronchitis; Nausea and hb vomiting. Condition is Stable. Forms are Medication Reconciliation Form, Thank You Letter, Antibiotic Education, Prescription Opioid Use. Follow up: Private Physician; When: 2 - 3 days; Reason: Worsening of condition. Problem is new. Symptoms have improved. cp
--- NOTE | 2021-02-11 17:55 | ER ---
Nurse's Notes [facility] Name: Patric Kendall Age: 45 yrs Sex: Male : 1975 Arrival Date: 02/11/2021 Time: 13:59 Bed 14 Private MD: Diagnosis: Acute bronchitis;Nausea and vomiting Presentation: 02/11 14:06 Chief complaint: Patient states: Weak, fatigue, cough, N/V for 4 days. No fever. ll1 Sudafed helped a lot. Coronavirus screen: Client denies travel out of the [place] in the last 14 days. cough unrelated to allergies, fatigue, headache, muscle pain, nausea, sore throat, vomiting. Client presents with at least one sign or symptom that may indicate coronavirus-19. Ebola Screen: Patient denies travel to an Ebola-affected area in the 21 days before illness onset. No acute neurological deficit is noted. Initial Sepsis Screen: Does the patient meet any 2 criteria? HR > 90 bpm. No. Patient's initial sepsis screen is negative. Does the patient have a suspected source of infection? Yes: Acute abdominal pain. Risk Assessment: Do you want to hurt yourself or someone else? Patient reports no desire to harm self or others. Onset of symptoms was February 08, 2021. 14:06 Method Of Arrival: Ambulatory ll1 14:06 Acuity: JAVAD 3 ll1 Stroke Activation: Symptom onset > 6 hours Physician: Stroke Attending; Name: ; Notified At: ; Arrived At: Physician: Chief Stroke Resident; Name: ; Notified At: ; Arrived At: Physician: Stroke Resident; Name: ; Notified At: ; Arrived At: Physician: ED Attending; Name: ; Notified At: ; Arrived At: Physician: ED Resident; Name: ; Notified At: ; Arrived At: Historical: - Allergies: 14:09 No Known Allergies; ll1 - PMHx: 14:09 Diabetes - NIDDM; Hypertension; High Cholesterol; ll1 - PSHx: 14:09 None; ll1 - Immunization history:: Flu vaccine is not up to date. - Social history:: Smoking status: Patient denies any tobacco usage or history of. Screenin:52 Abuse screen: Denies threats or abuse. Denies injuries from another. Nutritional hb screening: No deficits noted. Tuberculosis screening: No symptoms or risk factors identified. Fall Risk None identified. Assessment: 15:36 General: Appears in no apparent distress. Behavior is calm, cooperative. Pain: Pain hb currently is 7 out of 10 on a pain scale. Neuro: Level of Consciousness is awake, alert, obeys commands, Oriented to person, place, time, situation. Cardiovascular: Patient's skin is warm and dry. Respiratory: Respiratory effort is even, unlabored, Respiratory pattern is regular, symmetrical. GI: Reports nausea. : No signs and/or symptoms were reported regarding the genitourinary system. EENT: No signs and/or symptoms were reported regarding the EENT system. Derm: Skin is pink, warm \T\ dry. Musculoskeletal: Reports pain all over. 16:30 Reassessment: Patient appears in no apparent distress at this time. Patient and/or hb family updated on plan of care and expected duration. Pain level reassessed. Patient is alert, oriented x 3, equal unlabored respirations, skin warm/dry/pink. 17:30 Reassessment: Patient appears in no apparent distress at this time. Patient and/or hb family updated on plan of care and expected duration. Pain level reassessed. Patient is alert, oriented x 3, equal unlabored respirations, skin warm/dry/pink. 18:15 Reassessment: Patient appears in no apparent distress at this time. Patient and/or hb family updated on plan of care and expected duration. Pain level reassessed. Patient is alert, oriented x 3, equal unlabored respirations, skin warm/dry/pink. Vital Signs: 14:06 BP 106 / 77; Pulse 115; Resp 17; Temp 98.5; Pulse Ox 97% ; Weight 90.72 kg; Height 5 ll1 ft. 7 in. (170.18 cm); Pain 7/10; 15:36 BP 124 / 86; Pulse 92; Resp 16; Pulse Ox 97% on R/A; Pain 7/10; hb 17:30 BP 122 / 82; Pulse 82; Resp 16; Pulse Ox 99% on R/A; hb 14:06 Body Mass Index 31.32 (90.72 kg, 170.18 cm) ll1 ED Course: 13:59 Patient arrived in ED. bp1 14:09 Triage completed. ll1 14:09 Arm band placed on. ll1 15:07 Yuri Roldan PA is PHCP. cp 15:07 Umang Spence MD is Attending Physician. cp 15:29 Bell Villalba, RN is Primary Nurse. hb 15:41 Inserted saline lock: 20 gauge in right antecubital area, using aseptic technique. dh4 Blood collected. Missed attempt(s): 20 gauge in right antecubital area. 15:52 Patient has correct armband on for positive identification. Bed in low position. Call hb light in reach. Side rails up X 1. 15:54 Basic Metabolic Panel Sent. hb 15:54 CBC with Diff Sent. hb 16:43 XRAY Chest Pa And Lat (2 Views) In Process Unspecified. EDMS 18:34 No provider procedures requiring assistance completed. IV discontinued, intact, hb bleeding controlled, No redness/swelling at site. Administered Medications: 15:49 Drug: Zofran (Ondansetron) 4 mg Route: IVP; Site: right antecubital; hb 16:51 Follow up: Response: No adverse reaction hb 15:49 Drug: Pepcid (famotidine) 20 mg Route: IVP; Site: right antecubital; hb 16:51 Follow up: Response: No adverse reaction hb 15:50 Drug: NS 0.9% 1000 ml Route: IV; Rate: 1 bolus; Site: right antecubital; hb 16:51 Follow up: Response: No adverse reaction; IV Status: Completed infusion; IV Intake: hb 1000ml 17:15 Drug: NS 0.9% 1000 ml Route: IV; Rate: 1 bolus; Site: right antecubital; hb Intake: 16:51 IV: 1000ml; Total: 1000ml. hb Outcome: 17:54 Discharge ordered by MD. cp 18:34 Discharged to home ambulatory, with family. hb 18:34 Condition: stable 18:34 Discharge instructions given to patient, family, Instructed on discharge instructions, follow up and referral plans. medication usage, Demonstrated understanding of instructions, follow-up care, medications, Prescriptions given X 3. 18:50 Patient left the ED. hb Signatures: Dispatcher [employer] EDMS Yuri Roldan PA PA cp Baxter, Heather, RN RN hb Bennett Sanchez dh4 Delia Blake RN RN ll1 [facility]
[2021-02-11 18:07] LABS: Urine Bacteria <20 /HPF (NONE SEEN); Urine RBC NONE SEEN /HPF (NONE SEEN)
[2021-02-11 18:57] VITALS: TEMP 98.5
[2021-02-11 19:00] VITALS: BP 122/82; O2SAT 99
--- NOTE | 2021-02-12 07:47 | EKG ---
Test Date: 2021-02-11 Test Time: 15:50:33 Interior Block Wirer: MARK MEASUREMENT RESULTS: Intervals: Rate: 93 AZ: 164 QRSD: 84 QT: 358 QTc: 445 [place]: P: 53 AZ: 164 QRS: 70 T: 33 INTERPRETIVE STATEMENTS: Normal sinus rhythm Normal ECG Compared to ECG 03/25/2013 19:30:36 T-wave abnormality no longer present Electronically Signed On 02-12-21 07:46:22 CDT by Schuyler Hernández
== END 2021-02-11 18:50 | disposition home or self-care (01) ==
LOC: ER 13:53
DX: J20.9 Acute bronchitis, unspecified (principal); R11.2 Nausea with vomiting, unspecified; I10 Essential (primary) hypertension; Z20.822 Contact with and (suspected) exposure to COVID-19
CPT/HCPCS: 36415; 71046; 80048; 80076; 81003; 81015; 83735; 84484; 85025; 85610; 87070; 87081; 93005; 96361; 96374; 96375; 99284; J2405; J7030; U0003

== ENCOUNTER 2022-04-05 17:13 | Emergency (ER) | payer SELFPAY ==
[2022-04-05 18:22] LABS: Absolute Lymphocytes (CBC) 2.1 K/uL (0.7-4.9); Hematocrit 53.2 % (39.6-49.0); Lymphocytes % 15.1 % (15.3-44.8); MCV 90.3 fL (80-100); MPV 8.2 fL (7.6-11.3); RBC Red Blood Cell Count 5.89 M/uL (4.33-5.43)
[2022-04-05 18:31] LABS: SARS-CoV-2 Antigen Rapid Res Negative (Negative)
[2022-04-05 18:35] LABS: Albumin 4.8 g/dL (3.4-5.0); Bilirubin Total 1.1 mg/dL (0.2-1.0); Potassium 4.8 mmol/L (3.5-5.1)
--- NOTE | 2022-04-05 19:22 | RAD REPORT ---
EXAM DESCRIPTION: CT - Head Brain Wo Cont - 04/05/2022 7:10 pm CLINICAL HISTORY: headache COMPARISON: HEAD BRAIN W O CONTRAST dated 03/25/2013 TECHNIQUE: All CT scans are performed using dose optimization technique as appropriate and may inclu de automated exposure control or mA/KV adjustment according to patient size. FINDINGS: No intracranial hemorrhage, hydrocephalus or extra-axial fluid collection.No areas of brai n edema or evidence of midline shift. The paranasal sinuses and mastoids are clear. The calvarium is intact. IMPRESSION: No acute intracranial abnormality.
[2022-04-05 19:58] LABS: Urine Blood Negative (Negative); Urine Glucose 3+ (Negative); Urine Protein 1+ (Negative); Urine Specific Gravity >=1.030 (1.005-1.030)
[2022-04-05] MEDS ORDERED: NA CHLORIDE 0.9% 1,000 ML ONE (20:05)
[2022-04-05] MEDS ORDERED: ONDANSETRON 4 MG/2 ML VIAL ONE (20:05)
--- NOTE | 2022-04-05 20:34 | RAD REPORT ---
EXAM DESCRIPTION: RAD - Chest Single View - 04/05/2022 8:24 pm CLINICAL HISTORY: COUGH COMPARISON: Chest Pa And Lat (2 Views) dated 02/11/2021; Chest Pa And Lat (2 Views) dated 10/07/2019; CHEST SINGLE VIEW dated 03/25/2013 FINDINGS: Lines: None. Lungs: No evidence of edema or pneumonia. Pleural: No significant pleural effusions or pneumothorax. Cardiac: The heart size is within normal limits. Bones: No acute fractures. Other: IMPRESSION: No acute cardiopulmonary disease.
[2022-04-05 20:41] LABS: Urine Bacteria 20-50 /HPF (<20); Urine Mucus 2+ /HPF (None Seen); Urine RBC <5 /HPF (None Seen)
--- NOTE | 2022-04-05 20:45 | ER ---
Nurse's Notes [facility] Name: Patric Kendall Age: 46 yrs Sex: Male : 1975 Arrival Date: 04/05/2022 Time: 17:15 Bed 28 Private MD: Diagnosis: Cramp and spasm;Dehydration;Vomiting, unspecified Presentation: 04/05 17:35 Chief complaint: Patient states: Pt reports abdominal and leg cramps and vomiting that [facility] began around 1100 this morning. Pt works outside but did not feel like he got overheated. Coronavirus screen: Vaccine status: Patient reports receiving the 2nd dose of the covid vaccine. Ebola Screen: Patient negative for fever greater than or equal to 101.5 degrees Fahrenheit, and additional compatible Ebola Virus Disease symptoms Patient denies exposure to infectious person. Patient denies travel to an Ebola-affected area in the 21 days before illness onset. 17:35 Method Of Arrival: Ambulatory [facility] 17:38 Initial Sepsis Screen: Does the patient meet any 2 criteria? No. Patient's initial [facility] sepsis screen is negative. Does the patient have a suspected source of infection? No. Patient's initial sepsis screen is negative. Risk Assessment: Do you want to hurt yourself or someone else? Patient reports no desire to harm self or others. Onset of symptoms was April 05, 2022 at 11:00. 17:38 Acuity: JAVAD 3 [facility] Triage Assessment: 17:41 General: Appears in no apparent distress. comfortable. Pain: Complains of pain in head [facility] Pain does not radiate. Pain currently is 7 out of 10 on a pain scale. Quality of pain is described as aching, Pain began gradually, Began around 1100 am with other symptoms. Neuro: No deficits noted. Reports headache frontal area. Historical: - Allergies: 17:39 No Known Allergies; [facility] - Home Meds: 17:39 Metformin Oral [Active]; Lisinopril Oral once daily [Active]; [facility] - PMHx: 17:39 Diabetes - NIDDM; High Cholesterol; Hypertension; [facility] - PSHx: 17:39 None; 6 - Immunization history:: Client reports receiving the 2nd dose of the Covid vaccine. - Social history:: Smoking status: Patient denies any tobacco usage or history of. - Family history:: not pertinent. - Hospitalizations: : No recent hospitalization is reported. Assessment: 20:38 General: Appears in no apparent distress. comfortable, well groomed, Behavior is calm, eb1 cooperative, appropriate for age, Reports abdominal cramping x2 days. Pain: Complains of pain in right lower quadrant and left lower quadrant Quality of pain is described as crampy. Neuro: No deficits noted. Cardiovascular: No deficits noted. Respiratory: No deficits noted. GI: No deficits noted. No signs and/or symptoms were reported involving the gastrointestinal system. 21:11 Reassessment: Patient appears in no apparent distress at this time. Patient is alert, eb1 oriented x 3, equal unlabored respirations, skin warm/dry/pink. Patient states feeling better. Patient states symptoms have improved. Vital Signs: 17:35 BP 117 / 88; Pulse 101; Resp 20; Temp 98.7; Pulse Ox 97% ; Weight 90.72 kg; Height 5 jh6 ft. 6 in. (167.64 cm); Pain 7/10; 19:44 BP 132 / 84; Pulse 86; Resp 20; Temp 98.6; Pulse Ox 98% ; eb1 17:35 Body Mass Index 32.28 (90.72 kg, 167.64 cm) jh6 ED Course: 17:15 Patient arrived in ED. mr 17:19 Papo Christian DO is Attending Physician. ms3 17:39 Triage completed. jh6 17:42 Arm band placed on left wrist. jh6 18:14 CBC with Diff Sent. mb7 18:14 Lipase Sent. mb7 18:14 CMP Sent. mb7 18:14 CPK Sent. mb7 18:14 Inserted saline lock: 20 gauge in left antecubital area, using aseptic technique. Blood mb7 collected. 19:04 Attending Physician role handed off by Ppao Christian DO rn 19:04 Flynn Villalta MD is Attending Physician. rn 19:12 CT Head Brain wo Cont In Process Unspecified. EDMS 20:26 XRAY Chest (1 view) In Process Unspecified. EDMS 20:37 Urine Microscopic Only Sent. eb1 20:39 Patient has correct armband on for positive identification. Bed in low position. Call eb1 light in reach. Side rails up X2. 21:11 Urine Culture Sent. eb1 Administered Medications: 20:01 Drug: NS 0.9% 1000 ml Route: IV; Rate: 1 bolus; Site: left antecubital; eb1 20:01 Drug: Zofran (Ondansetron) 4 mg Route: IVP; Site: left antecubital; eb1 20:01 Drug: NS 0.9% 1000 ml Route: IV; Rate: 1000 ml; Site: left antecubital; eb1 Outcome: 20:44 Discharge ordered by . rn 21:33 Patient left the ED. eb1 Signatures: Dispatcher [employer] ENRIKEAR Jyoti Marte Roman, MD MD rn Basinger, Emily, RN RN eb1 Papo Christian DO DO ms3 Edita Orta RN RN jh6 Jyoti Mitchell mb7
--- NOTE | 2022-04-05 20:45 | EDPHYS ---
Physician Documentation [facility] Name: Patric Kendall Age: 46 yrs Sex: Male : 1975 Arrival Date: 04/05/2022 Time: 17:15 Bed 28 Private MD: ED Physician Flynn Villalta HPI: 04/05 20:04 This 46 yrs old Male presents to ER via Ambulatory with complaints of Abd rn cramps,leg cramps, Weakness, Vomiting. 20:04 Pt reports 2-3 days of generalized fatigue and weakness, assoc with nausea/vomiting. NO rn fever. Works outdoors laying concrete. Also diabetic. NO focal neuro complaints. No diarrhea. NO known sick contacts. . Onset: The symptoms/episode began/occurred 3 day(s) ago. Severity of symptoms: At their worst the symptoms were moderate in the emergency department the symptoms are unchanged. The patient has experienced a previous episode. The patient has not recently seen a physician. Historical: - Allergies: 17:39 No Known Allergies; [address] Meds: 17:39 Metformin Oral [Active]; Lisinopril Oral once daily [Active]; [facility] PMHx: 17:39 Diabetes - NIDDM; High Cholesterol; Hypertension; [facility] PSHx: 17:39 None; [facility] - Immunization history:: Client reports receiving the 2nd dose of the Covid vaccine. - Social history:: Smoking status: Patient denies any tobacco usage or history of. - Family history:: not pertinent. - Hospitalizations: : No recent hospitalization is reported. ROS: 20:04 Constitutional: Negative for fever, + chills and myalgias. Eyes: Negative for injury, rn pain, redness, and discharge, Neck: Negative for injury, pain, and swelling, Cardiovascular: Negative for chest pain, palpitations, and edema, Respiratory: Negative for shortness of breath, cough, wheezing, and pleuritic chest pain, Abdomen/GI: + nausea/vomiting, negative for abd pain Back: Negative for injury and pain, MS/Extremity: Negative for injury and deformity, Skin: Negative for injury, rash, and discoloration, Neuro: Negative for numbness, tingling, and seizure. Exam: 20:04 Constitutional: This is a well developed, well nourished patient who is awake, alert, rn and in no acute distress. Head/Face: Normocephalic, atraumatic. Eyes: Pupils equal round and reactive to light, extra-ocular motions intact. Periorbital areas with no swelling, redness, or edema. ENT: dry MM Neck: Trachea midline, no thyromegaly or masses palpated, and no cervical lymphadenopathy. Supple, full range of motion without nuchal rigidity, or vertebral point tenderness. No Meningismus. Cardiovascular: Tachycardic, regular Respiratory: No increased work of breathing, no retractions or nasal flaring. Abdomen/GI: Soft, non-tender Skin: Warm, dry MS/ Extremity: Pulses equal, no cyanosis. Neuro: Awake and alert, GCS 15, oriented to person, place, time, and situation. Cranial nerves II-XII grossly intact. Motor strength 5/5 in all extremities. Sensory grossly intact. Cerebellar exam normal. Normal gait. Vital Signs: 17:35 BP 117 / 88; Pulse 101; Resp 20; Temp 98.7; Pulse Ox 97% ; Weight 90.72 kg; Height 5 jh6 ft. 6 in. (167.64 cm); Pain 7/10; 19:44 BP 132 / 84; Pulse 86; Resp 20; Temp 98.6; Pulse Ox 98% ; eb1 17:35 Body Mass Index 32.28 (90.72 kg, 167.64 cm) jh6 MDM: 17:42 Patient medically screened. ms3 20:42 Differential Diagnosis viral syndrome, COVID, heat exhaustion, DKA, hyperglycemia, rn dehydration. Data reviewed: vital signs, nurses notes, lab test result(s), radiologic studies, CT scan, plain films, and as a result, I will discharge patient. Counseling: I had a detailed discussion with the patient and/or guardian regarding: the historical points, exam findings, and any diagnostic results supporting the discharge/admit diagnosis, lab results, radiology results, the need for outpatient follow up, to return to the emergency department if symptoms worsen or persist or if there are any questions or concerns that arise at home. Response to treatment: the patient's symptoms have mildly improved after treatment, and as a result, I will discharge patient. Special discussion: I discussed with the patient/guardian in detail that at this point there is no indication for admission to the hospital. It is understood, however, that if the symptoms persist or worsen the patient needs to return immediately for re-evaluation. ED course: Patient improved, repeat abd exam benign, neg ct head, normal CXR, COVID neg, recommend oral rehydration and given return precautions. Normal neuro exam. . 04/05 17:43 Order name: CBC with Diff; Complete Time: 19:01 ms3 04/05 17:43 Order name: CMP; Complete Time: 19:01 ms3 04/05 17:43 Order name: Lipase; Complete Time: 19:01 ms3 04/05 17:43 Order name: Urine Microscopic Only; Complete Time: 20:42 ms3 04/05 17:43 Order name: CPK; Complete Time: 19:01 ms3 04/05 17:55 Order name: SARS RAPID; Complete Time: 19:01 jl7 04/05 17:43 Order name: CT Head Brain wo Cont; Complete Time: 19:42 ms3 04/05 17:43 Order name: IV Saline Lock; Complete Time: 18:14 ms3 04/05 19:58 Order name: Urine Dipstick-Ancillary; Complete Time: 20:07 EDMS 04/05 20:08 Order name: XRAY Chest (1 view); Complete Time: 20:42 rn 04/05 20:44 Order name: Urine Culture EDMS 04/05 17:43 Order name: Labs collected and sent; Complete Time: 18:14 ms3 04/05 17:43 Order name: Urine Dipstick-Ancillary (obtain specimen); Complete Time: 20:01 ms3 Administered Medications: 20:01 Drug: NS 0.9% 1000 ml Route: IV; Rate: 1 bolus; Site: left antecubital; eb1 20:01 Drug: Zofran (Ondansetron) 4 mg Route: IVP; Site: left antecubital; eb1 20:01 Drug: NS 0.9% 1000 ml Route: IV; Rate: 1000 ml; Site: left antecubital; eb1 Disposition Summary: 04/05/22 20:44 Discharge Ordered Location: Home rn Problem: new rn Symptoms: have improved rn Condition: Stable rn Diagnosis - Cramp and spasm rn - Dehydration rn - Vomiting, unspecified rn Followup: rn - With: Private Physician - When: As needed - Reason: Recheck today's complaints, Re-evaluation by your physician Discharge Instructions: - Discharge Summary Sheet rn - Dehydration, Adult rn - Muscle Cramps and Spasms rn - Nausea and Vomiting, Adult rn Forms: - Medication Reconciliation Form rn - Thank You Letter rn - Antibiotic senior internet sales consultant - Prescription Opioid Use rn Prescriptions: - ondansetron 4 mg Oral tablet,disintegrating - take 1 tablet by ORAL route every 8 hours As needed; 15 tablet; Refills: 0, rn Product Selection Permitted Signatures: Dispatcher [employer] EDFlynn James MD MD rn Basinger, Emily, RN RN eb1 Papo Christian DO DO ms3 Edita Orta RN RN jh6
[2022-04-05 21:47] VITALS: BP 132/84; TEMP 98.6; O2SAT 98
== END 2022-04-05 21:33 | disposition home or self-care (01) ==
LOC: ER 17:13
DX: E86.0 Dehydration (principal); R25.2 Cramp and spasm; Z20.822 Contact with and (suspected) exposure to COVID-19; E11.9 Type 2 diabetes mellitus without complications; I10 Essential (primary) hypertension
CPT/HCPCS: 36415; 70450; 71045; 80053; 81003; 81015; 82550; 83690; 85025; 87086; 87088; 87811; J2405; J7030

== ENCOUNTER 2023-01-10 20:40 | Observation (INO) | payer SELFPAY ==
[2023-01-11 00:04] LABS: Absolute Lymphocytes (CBC) 1.9 K/uL (0.7-4.9); Hematocrit 44.7 % (39.6-49.0); Lymphocytes % 23.4 % (15.3-44.8); MCV 90.7 fL (80-100); MPV 7.6 fL (7.6-11.3); RBC Red Blood Cell Count 4.93 M/uL (4.33-5.43)
[2023-01-11 00:18] LABS: Albumin 3.6 g/dL (3.4-5.0); Bilirubin Total 0.3 mg/dL (0.2-1.0); Magnesium 1.8 mg/dL (1.6-2.4); Potassium 4.2 mEq/L (3.5-5.1); Protein, Total 7.5 g/dL (6.4-8.2)
[2023-01-11 00:28] LABS: Specific Gravity 1.021 (1.005-1.030); Urine Bilirubin NEGATIVE (Negative); Urine Blood Negative (Negative); Urine Clarity Clear (Clear); Urine Color Light-Yellow (Yellow); Urine Glucose 4+ (Negative); Urine Protein NEGATIVE (Negative); Urine Urobilinogen Normal (Normal)
--- NOTE | 2023-01-11 01:46 | ER ---
Nurse's Notes [facility] Name: Patric Ashley Age: 47 yrs Sex: Male : 1975 Arrival Date: 01/10/2023 Time: 20:40 Bed 16 Private MD: Diagnosis: Abdominal pain, Generalized Presentation: 01/10 21:07 Chief complaint: Patient states: abdominal swelling and pain began off and on since kl being seen here on Sunday. Coronavirus screen: Vaccine status: Patient reports receiving the 2nd dose of the covid vaccine. Ebola Screen: Patient negative for fever greater than or equal to 101.5 degrees Fahrenheit, and additional compatible Ebola Virus Disease symptoms. Initial Sepsis Screen: Does the patient meet any 2 criteria? No. Patient's initial sepsis screen is negative. Does the patient have a suspected source of infection? No. Patient's initial sepsis screen is negative. Risk Assessment: Do you want to hurt yourself or someone else? Patient reports no desire to harm self or others. 21:07 Method Of Arrival: Ambulatory 21:07 Acuity: JAVAD 3 01/11 00:00 Onset of symptoms was January 11, 2023. ha1 Triage Assessment: 01/10 21:10 General: Appears uncomfortable, well groomed, well developed, Behavior is calm, kl cooperative. Pain: Complains of pain in abdomen Pain currently is 9 out of 10 on a pain scale. GI: Reports upper abdominal pain, tolerance of fluids, tolerance of food. Historical: - Allergies: 21:09 No Known Allergies; kl - Home Meds: 21:09 lisinopril Oral once daily [Active]; Metformin Oral [Active]; kl - PMHx: 21:09 Diabetes - NIDDM; High Cholesterol; Hypertension; kl - Immunization history:: Adult Immunizations up to date. - Social history:: Smoking status: Patient denies any tobacco usage or history of. Screenin/27 01:18 [facility] ED Fall Risk Assessment (Adult) History of falling in the last 3 months, including since admission No falls in past 3 months (0 pts) Confusion or Disorientation No (0 pts) Intoxicated or Sedated No (0 pts) Impaired Gait No (0 pts) Mobility Assist Device Used No (0 pt) Altered Elimination No (0 pt) Score/Fall Risk Level 0 - 2 = Low Risk Oriented to surroundings, Maintained a safe environment. Abuse screen: Denies threats or abuse. Nutritional screening: No deficits noted. Tuberculosis screening: No symptoms or risk factors identified. Assessment: 01:18 Reassessment: Patient appears in no apparent distress at this time. Patient and/or kl family updated on plan of care and expected duration. Pain level reassessed. Patient states feeling better. Patient states symptoms have improved. 02:30 Reassessment: Patient and/or family updated on plan of care and expected duration. Pain ha1 level reassessed. Patient is alert, oriented x 3, equal unlabored respirations, skin warm/dry/pink. General:. 02:30 General: Appears comfortable, Behavior is calm, cooperative. Pain: Complains of pain in ha1 left lower quadrant Pain does not radiate. Pain currently is 5 out of 10 on a pain scale. Neuro: Level of Consciousness is awake, alert, obeys commands, Oriented to person, place, time, situation. Cardiovascular: Heart tones S1 S2 present Capillary refill Rhythm is sinus rhythm. GI: Abdomen is flat, non-distended, Bowel sounds present X 4 quads. Abdomen is tender to palpation in left lower quadrant Reports lower abdominal pain. 03:34 GI: Bowel sounds present X 4 quads. Abdomen is tender to palpation in left lower ha1 quadrant. Vital Signs: 01/10 21:07 BP 130 / 83; Pulse 90; Resp 18; Temp 99(TE); Pulse Ox 97% on R/A; Weight 90.72 kg (R); Height 5 ft. 8 in. ; Pain 9/10; 01/11 01:18 BP 139 / 98; Pulse 78; Resp 18; Pulse Ox 99% on R/A; kl 02:50 BP 117 / 81; Pulse 71; Resp 18 S; Pulse Ox 98% on R/A; ha1 01/10 21:07 Body Mass Index 30.41 (90.72 kg, 172.72 cm) 01/10 21:07 Pain Scale: Adult ED Course: 01/10 20:44 Patient arrived in ED. mr 21:09 Triage completed. 21:10 Yuri Roldan PA is PHCP. 21:10 Yuri Bey MD is Attending Physician. 01/11 00:00 Inserted saline lock: 20 gauge in right antecubital area, using aseptic technique. ha1 Blood collected. inserted by CORTNEY Mata. 00:01 CBC with Diff Sent. kl 00:01 Lipase Sent. kl 00:01 Urinalysis w/ reflexes Sent. kl 00:42 CT Abd/Pelvis - IV Contrast Only In Process Unspecified. EDMS 01:19 Patient has correct armband on for positive identification. Placed in gown. Call light kl in reach. Side rails up X2. 01:45 Ronen Sterling FNP-C is Hospitalizing Provider. cp 02:07 Ptt, Activated Sent. kl 02:07 PT-INR Sent. kl 02:07 Blood Culture Adult (2) Sent. kl 02:30 Report received from CORTNEY Mata. ha1 02:51 Marixa Vizcaino RN is Primary Nurse. ha1 03:34 No provider procedures requiring assistance completed. Patient admitted, IV remains in ha1 place. 03:35 Patient notified of wait time. ha1 Administered Medications: 00:05 Drug: Ondansetron IVP 4 mg Route: IVP; Site: right antecubital; kl 00:10 Drug: morphine IVP or IV 2 mg Route: IVP; Infused Over: 4 mins; Site: right forearm; kl 00:19 Drug: NS 0.9% IV 1000 ml Route: IV; Rate: 1 bolus; Site: right antecubital; kl 06:01 Not Given (Physician Discretion): morphine IVP or IV 2 mg IVP once over 4 mins ha1 Medication: 03:34 VIS not applicable for this client. ha1 Outcome: 01:46 Decision to Hospitalize by Provider. cp 03:34 Admitted to ER Hold. Please see [facility] for further documentation. ha1 03:34 Condition: stable 03:34 Discharge instructions given to patient, Instructed on the need for admit, Demonstrated understanding of instructions. 08:04 Patient left the ED. ko1 Signatures: Dispatcher [employer] EDMS Merry Blake RN RN kl Rivera, Mary mr Page, Corey, PA PA cp Marixa Vizcaino RN RN ha1 Jennifer Cee RN RN ko1
--- NOTE | 2023-01-11 01:46 | EDPHYS ---
Physician Documentation [facility] Name: Patric Ashley Age: 47 yrs Sex: Male : 1975 Arrival Date: 01/10/2023 Time: 20:40 Bed 16 Private MD: ED Physician Yuri Bey HPI: 01/10 23:20 This 47 yrs old Male presents to ER via Ambulatory with complaints of cp Abdominal Pain, Flank Pain. 23:20 The patient presents with abdominal pain. cp 23:20 Onset: The symptoms/episode began/occurred several weeks ago. The symptoms radiate to cp both flanks. Associated signs and symptoms: Pertinent positives: chills, Pertinent negatives: blood in stools, chest pain, constipation, diarrhea, fever, shortness of breath, testicular pain. The symptoms are described as constant. Severity of pain: in the emergency department the pain is unchanged despite home interventions. 23:20 Patient seen in this ED 12-24-2022 for abdominal pain. Reports finishing prescribed cp antibiotic and symptoms improving. Pain and swelling returned last week and is worse today. Historical: - Allergies: 21:09 No Known Allergies; kl - Home Meds: 21:09 lisinopril Oral once daily [Active]; Metformin Oral [Active]; kl - PMHx: 21:09 Diabetes - NIDDM; High Cholesterol; Hypertension; kl - Immunization history:: Adult Immunizations up to date. - Social history:: Smoking status: Patient denies any tobacco usage or history of. ROS: 23:25 Constitutional: Positive for chills, Negative for fever, poor PO intake. cp 23:25 Eyes: Negative for injury, pain, redness, and discharge. cp 23:25 Cardiovascular: Negative for chest pain, palpitations. 23:25 Respiratory: Negative for cough, shortness of breath, wheezing. 23:25 Abdomen/GI: Positive for abdominal pain, abdominal distension, Negative for vomiting, diarrhea, constipation. 23:25 : Positive for flank pain, Negative for urinary symptoms, hematuria, pelvic pain, cp testicular pain 23:25 Skin: Negative for cellulitis. 23:25 Neuro: Negative for altered mental status, dizziness, headache, numbness, weakness. 23:25 All other systems are negative. cp Exam: 23:30 Constitutional: The patient appears in no acute distress, alert, awake, cp non-diaphoretic, non-toxic, well developed, well nourished, uncomfortable, overweight 23:30 Head/Face: Normocephalic, atraumatic. cp 23:30 Eyes: Periorbital structures: appear normal, Conjunctiva: normal, no exudate, no cp injection, Sclera: no appreciated abnormality, Lids and lashes: appear normal, bilaterally. 23:30 ENT: External ear(s): are unremarkable, Nose: is normal, Mouth: Lips: moist, Oral mucosa: pink and intact, moist, Posterior pharynx: is normal, airway is patent, no erythema, no exudate. 23:30 Chest/axilla: Inspection: normal. cp 23:30 Cardiovascular: Rate: normal, Rhythm: regular. 23:30 Respiratory: the patient does not display signs of respiratory distress, Respirations: normal, no use of accessory muscles, no retractions, labored breathing, is not present, Breath sounds: are clear throughout, no decreased breath sounds, no stridor, no wheezing. 23:30 Abdomen/GI: Inspection: distension, that is mild, Bowel sounds: active, all quadrants, Palpation: soft, in all quadrants, moderate abdominal tenderness, in the anterior aspect of left lateral abdomen, posterior aspect of right lateral abdomen, right upper quadrant and left upper quadrant, rebound tenderness, is not appreciated, voluntary guarding, is elicited in the anterior aspect of left lateral abdomen, anterior aspect of right lateral abdomen, right upper quadrant and left upper quadrant. 23:30 Back: CVA tenderness, is absent. 23:30 Skin: on the lower abdomen. 23:30 Neuro: Orientation: to person, place \T\ time. Mentation: is normal, Motor: moves all fours, strength is normal, Gait: is steady. 01/11 03:18 ECG was reviewed by the Attending Physician. cp Vital Signs: 01/10 21:07 BP 130 / 83; Pulse 90; Resp 18; Temp 99(TE); Pulse Ox 97% on R/A; Weight 90.72 kg (R); kl Height 5 ft. 8 in. ; Pain 9/10; 01/11 01:18 BP 139 / 98; Pulse 78; Resp 18; Pulse Ox 99% on R/A; kl 02:50 BP 117 / 81; Pulse 71; Resp 18 S; Pulse Ox 98% on R/A; ha1 01/10 21:07 Body Mass Index 30.41 (90.72 kg, 172.72 cm) kl 01/10 21:07 Pain Scale: Adult kl MDM: 01/10 21:11 Patient medically screened. cp 01/11 00:00 Differential diagnosis: bowel obstruction, cholecystitis, Cholelithiasis, cp diverticulitis, non-specific abd pain, pancreatitis, Pyelonephritis, Ureterolithiasis, urinary tract infection. 01:50 Data reviewed: vital signs, nurses notes, lab test result(s), EKG, radiologic studies, cp CT scan. 01:50 Consideration of Admission/Observation Patient was admitted/placed on observation. cp Management of patient was discussed with the following: Hospitalist: Ronen Sterling NP will admit patient after discussion of results. Care significantly affected by the following chronic conditions: Diabetes, Hypertension. Counseling: I had a detailed discussion with the patient and/or guardian regarding: the historical points, exam findings, and any diagnostic results supporting the discharge/admit diagnosis, lab results, radiology results. 01/10 23:18 Order name: CBC with Diff; Complete Time: 00:21 cp 01/10 23:18 Order name: CMP; Complete Time: 00:21 cp 01/11 00:21 Interpretation: Normal except: NA 135; GLUC 227; AST 12; GLOB 3.9; A/G 0.9. cp 01/10 23:18 Order name: Lipase; Complete Time: 00:21 cp 01/10 23:18 Order name: Urinalysis w/ reflexes; Complete Time: 00:36 cp 01/11 00:36 Interpretation: Normal except: UGLUC 4+. cp 01/10 23:18 Order name: Lactate w/ 2H reflex if indic.; Complete Time: 00:21 cp 01/10 23:18 Order name: Magnesium; Complete Time: 00:21 cp 01/11 01:10 Order name: Blood Culture Adult (2) cp 01/11 01:55 Order name: PT-INR la1 01/11 01:55 Order name: Ptt, Activated la1 01/11 02:19 Order name: Urinalysis w/ reflexes EDMS 01/11 02:19 Order name: CBC with Automated Diff EDMS 01/11 02:19 Order name: CBC with Automated Diff EDMS 01/11 02:19 Order name: CBC with Automated Diff [facility]IA 01/11 02:19 Order name: CBC with Automated Diff [facility] 01/11 02:19 Order name: Comprehensive Metabolic Panel [facility] 01/11 02:19 Order name: Comprehensive Metabolic Panel [facility] 01/11 02:19 Order name: Comprehensive Metabolic Panel [facility] 01/11 02:19 Order name: Comprehensive Metabolic Panel [facility] 01/11 02:19 Order name: Lipid Profile [facility] 01/11 02:19 Order name: Lipid Profile [facility] 01/11 02:19 Order name: Hemoglobin A1c [facility] 01/11 02:19 Order name: T4 Free [facility] 01/11 02:19 Order name: Thyroid Stimulating Hormone [facility] 01/11 02:21 Order name: CA 125 Antigen [facility] 01/11 02:21 Order name: Carcinoembryonic Antigen [facility] 01/11 02:24 Order name: ALBUMIN, PERITONEAL FLUID [facility] 01/11 02:24 Order name: AMYLASE, PERITONEAL FLUID [facility] 01/11 02:24 Order name: Body Fluid Cell Count [facility] 01/11 02:24 Order name: GLUCOSE, PERITONEAL FLUID [facility] 01/11 02:24 Order name: LD, PERITONEAL FLUID [facility] 01/11 02:24 Order name: TOTAL PROTEIN,PERITONEAL FLUID [facility] 01/11 02:24 Order name: Body Fluid Culture [facility] 01/10 23:53 Order name: CT Abd/Pelvis - IV Contrast Only 01/11 02:20 Order name: Paracentesis Proc Guidance [facility] 01/11 01:11 Order name: EKG; Complete Time: 01:11 cp 01/11 02:19 Order name: NPO [facility] 01/10 23:18 Order name: IV Saline Lock; Complete Time: 03:32 cp 01/10 23:18 Order name: Labs collected and sent; Complete Time: 03:32 cp 01/11 01:11 Order name: EKG - Nurse/Tech; Complete Time: 03:31 cp EC:18 Rate is 67 beats/min. Rhythm is regular. TX interval is normal. QRS interval is normal. cp QT interval is normal. T waves are Inverted in lead aVR. Interpreted by me. Reviewed by me. Administered Medications: 00:05 Drug: Ondansetron IVP 4 mg Route: IVP; Site: right antecubital; kl 00:10 Drug: morphine IVP or IV 2 mg Route: IVP; Infused Over: 4 mins; Site: right forearm; kl 00:19 Drug: NS 0.9% IV 1000 ml Route: IV; Rate: 1 bolus; Site: right antecubital; kl 06:01 Not Given (Physician Discretion): morphine IVP or IV 2 mg IVP once over 4 mins ha1 Disposition Summary: 01/11/23 01:46 Hospitalization Ordered Hospitalization Status: Inpatient Admission cp Provider: Ronen Sterling cp Condition: Stable cp Problem: an ongoing problem cp Symptoms: have improved cp Bed/Room Type: Standard cp Location: Telemetry/MedSurg (Inpatient)(01/11/23 05:53) eb1 Room Assignment: 219(01/11/23 05:53) eb1 Diagnosis - Abdominal pain, Generalized cp Forms: - Medication Reconciliation Form cp - SBAR form cp Signatures: Dispatcher [employer] EDMS Merry Blake RN RN Yuri Roldan PA PA cp Lorene Hernandes RN RN [facility] Marixa Vizcaino RN 1 Corrections: (The following items were deleted from the chart) 03:17 01:46 Telemetry/MedSurg (Inpatient) cp eb1 03:17 01:46 cp eb1 05:53 03:17 [facility] ER HOLD eb1 eb1 05:53 03:17 ERHOLD- eb1 eb1
[2023-01-11] MEDS ORDERED: ONDANSETRON 4 MG/2 ML VIAL IV PRN (02:15)
[2023-01-11 02:21] LABS: Protime INR 1.15
--- NOTE | 2023-01-11 03:07 | P.HP ---
Certification for Inpatient Patient admitted to: Observation With expected LOS: <2 Midnights Patient will require the following post-hospital care: None Practitioner: I am a practitioner with admitting privileges, knowledge of patient current condition, hospital course, and medical plan of care. Services: Services provided to patient in accordance with Admission requirements found in Title 42 Section 412.3 of the Code of Federal Regulations <Ronen Sterling - Last Filed: 01/11/23 03:03> Patient History Date of Service: 01/11/23 Reason for admission: Abdominal tenderness, ascites History of Present Illness: 47-year-old male with history of ekq-karsbdv-oxxjbtfzr diabetes, hypertension presents the emergency department chief complaint of abdominal pain, abdominal swelling. His is at bedside reports that has been having problems with abdominal pain since early December, he was seen here on December 24 for abdominal p ain, at that time his CT showed mild free ascites. Mild fat stranding throughout the omentum. Underlying infectious peritonitis cannot be entirely excluded. Patient's white blood cell count at that time was 13.7, he was offered admission but declined stating he is feeling better and want to go home. He was prescribed Augmentin at discharge which she has completed. Over the past week or so he has been having worsening abdominal pain and swelling, he was reevaluated today in the emergency department his white blood cell count is now within normal limits LFTs were normal kidney functions normal CT scan was again performed of the abdomen pelvis with IV contrast which shows interval increase in volume of peritoneal ascites and increase in severity gastric omental edema. Infectious process cannot be excluded. Paracentesis Gram stain and culture may be of benefit. Increase stool throughout the colon, diffuse fatty liver infiltration. Patient denies any fevers, no leukocytosis noted. He has not had any kind of cancer screening, does report changes in his bowel habits over the course of the last few months with increasing constipation. He is currently having mild to moderate abdominal pain, distention. ED provider wishes to admit for observation for abdominal tenderness, ascites. - Past Medical/Surgical History -: Tui-xwymmzx-ngshpowza diabetes -: Hypertension -: None Psychosocial/ Personal History: Patient lives at home with his family - Family History Mother -: Hypertension, Diabetes - Social History Smoking Status: Never smoker Alcohol use: No CD- Drugs: No Caffeine use: Yes Place of Residence: Home <Ronen Sterling - Last Filed: 01/11/23 03:03> Date of Service: 01/11/23 <Sebastián Stephen - Last Filed: 01/11/23 13:42> Allergies No Known Allergies Allergy (Unverified 03/16/18 19:23) Review of Systems 10-point ROS is otherwise unremarkable Gastrointestinal: Abdominal Pain, Distention, As per HPI <AsherRonen Puga - Last Filed: 01/11/23 03:03> Physical Examination - Physical Exam General: Alert, In no apparent distress, Oriented x3 HEENT: Atraumatic, PERRLA, Mucous membr. moist/pink, EOMI, Sclerae nonicteric Neck: Supple, 2+ carotid pulse no bruit, No LAD, Without JVD or thyroid abnormality Respiratory: Clear to auscultation bilaterally, Normal air movement Cardiovascular: Regular rate/rhythm, Normal S1 S2 Capillary refill: <2 Seconds Gastrointestinal: Normal bowel sounds, Distended, Ascites, Tenderness Musculoskeletal: No tenderness Integumentary: No rashes Neurological: Normal speech, Normal strength at 5/5 x4 extr, Normal tone, Normal affect - Studies Laboratory Data (last 24 hrs) 01/11/23 01:56: PT 12.6 H, INR 1.15, APTT 30.3 01/10/23 23:30: Sodium 135 L, Potassium 4.2, BUN 18, Creatinine 0.93, Glucose 227 H, Magnesium 1.8, Total Bilirubin 0.3, AST 12 L, ALT 31, Alkaline Phosphatase 75, Lipase 20 01/10/23 23:30: WBC 8.00, Hgb 15.1, Hct 44.7, Plt Count 255 <Ronen Sterling - Last Filed: 01/11/23 03:03> - Studies Laboratory Data (last 24 hrs) 01/11/23 01:56: PT 12.6 H, INR 1.15, APTT 30.3 01/10/23 23:30: Sodium 135 L, Potassium 4.2, BUN 18, Creatinine 0.93, Glucose 227 H, Magnesium 1.8, Total Bilirubin 0.3, AST 12 L, ALT 31, Alkaline Phosphatase 75, Lipase 20 01/10/23 23:30: WBC 8.00, Hgb 15.1, Hct 44.7, Plt Count 255 <Sebastián Stephen - Last Filed: 01/11/23 13:42> Assessment and Plan - Plan Assessment: Peritoneal ascites, abdominal tenderness, gastric omental edema Diabetes mellitus type 1kii-tgfhuco-fmcpkxvvi with hyperglycemia Hypertension Plan: Peritoneal ascites, abdominal tenderness, gastric omental edema No known liver, kidney or heart disease. Labs otherwise normal no fever, chills, leukocytosis or other signs of infection currently. He did recently complete a course of Augmentin approximately 1 week ago. Paracentesis ordered, there is some concern for possible malignancy. Additional labs, peritoneal flui d specimens ordered. Patient denies previous cancer screening including colonoscopy. He does report some constipation which is new from the past 2 months. Diabetes mellitus type 2ozw-ckoxzrl-ewvzjxmwg with hyperglycemia ACHS Accu-Chek, sliding scale insulin, A1c. Hypertension Continue home medication. DVT PPX: SCD Code status: Full Discharge Plan: Home Plan to discharge in: 24 Hours - Advance Directives Does patient have a Living Will: No Does patient have a Durable POA for Healthcare: No - Code Status/Comfort Care Code Status Assessed: Yes (Full code) Critical Care: No Time Spent Managing Pts Care (In Minutes): 70 <Ronen Sterling - Last Filed: 01/11/23 03:03> Physician Review: Patient Assessed, Agree with Above Assessment and Plan <Sebastián Stephen - Last Filed: 01/11/23 13:42>
[2023-01-11] MEDS: Ringers Lactate 1,000 ML IV SCH ×2 (03:55→14:59)
[2023-01-11] MEDS ORDERED: Ringers Lactate 1,000 ML IV ONE (04:15)
[2023-01-11 04:22] VITALS: BMI 31.3
[2023-01-11] MEDS: INSULIN -REGULAR HUMAN 50 UNIT/0.5 ML ML SQ SCH ×4 (07:30→21:29)
[2023-01-11] MEDS ORDERED: PNEUMOCOCCAL VACCINE 0.5 ML IMVAC ONE (08:00)
[2023-01-11 09:07] LABS: Carcinoembryonic Antigen 1.8 ng/mL (0-5.0); Thyroid Stimulating Hormone 1.91 uIU/mL (0.358-3.740)
--- NOTE | 2023-01-11 09:37 | RAD REPORT ---
EXAM DESCRIPTION: US - Abdomen Exam Limited - 01/11/2023 9:17 am CLINICAL HISTORY: Diagnostic tap, ascites, abdominal pain COMPARISON: No comparisons FINDINGS: Only a very small volume of ascites is visualized by ultrasound. The amount of ascites is insufficient for paracentesis at this time.
[2023-01-11] MEDS: CEFTRIAXONE 1,000 MG in NA CHLORIDE 0.9% 50 ML IVPB SCH ×2 (10:39→21:27)
--- NOTE | 2023-01-11 15:58 | CON ---
Date of Consultation: 01/11/2023 Reason For Consultation: Ascites. History Of Present Illness: The patient is a 47-year-old male with history of diabetes, hyp ertension, who presents to the emergency department due to abdominal tenderness and ascites. His wif e is at bedside. He was having abdominal pain in the upper abdomen prior to admission. He is not valencia ving any pain now. CT scan on December 24 showed some free ascites and mild fat stranding throughout t he omentum, infectious peritonitis or some other etiology. The patient was prescribed Aug mentin at discharge. Now, he is back to the hospital again with this abdominal pain. At the time of admission, CT scan and ultrasound of the abdomen are pending. Ultrasound today revealed minimal asc ites, not enough to tap. CT scan that was repeat is pending at this time as well, but it appears shu t there was minimal ascites and no other significant findings. The patient states he feels fine now, has no pain. He is tolerating diet, preferred to go home. He is a Swedish only speaking, but his w jose translates for him. Past Medical History: Significant for diabetes, hypertension. Even though he denied it when I asked him and I asked his . Social History: He is , 3 kids. No tobacco. No alcohol. He quit the alcohol 3 weeks ago wi th the diagnosis of possible alcoholic cirrhosis. Family History: As stated, father is alive and well. Mother alive with diabetes and hypertension. Review of Systems: The patient has some abdominal pain in the upper abdomen, ascites, fluid in the belly. He denied any nausea, vomiting, fevers, chills, night sweats, diarrhea, constipation, change in bowel habits, hernandez ge in weight, muscle aches, joint aches, backaches, chest pain, shortness of breath, seizure, syncope , depression or anxiety. Physical Examination: Vital Signs: He is 5 feet 7 inches, 200 pounds, BMI of 31.3 kg/m2. Temperature 97.6 degrees Fahrenh eit, pulse 71, respirations 16, blood pressure 132/84, O2 saturation 96%. HEENT: Normocephalic, atraumatic. Anicteric. Pupils equal, round, and reactive to light. Extraocu lar movements intact. Oropharynx clear. Neck: Supple. Respirations: Clear to auscultation bilaterally. Cardiac: Regular rate and rhythm. No gallops or rubs. Abdomen: Positive bowel sounds. Soft, nontender, nondistended. No hepatosplenomegaly. He has some mild tenderness in the midepigastric right upper quadrant area and left upper quadrant area, less so . Obese. No peritoneal or Hyman sign. No rebound. Extremities: No clubbing, cyanosis, or edema. 2+ pulses. Neuro: Alert and oriented x3. Grossly nonfocal. 5/5 motor. Sensation intact to light touch. Laboratory Data: The patient has a white count of 8.0, hemoglobin of 15.1, hematocrit of 44.7, MCV o f 91, platelet count 255, polys of 84%, lymphocytes 23%, monos 9%, eosinophils 2.5%. PT of 12.6, INR of 1.15, PTT of 30.3. Sodium 135, potassium 4.3, chloride 102, bicarb of 30, BUN of 18, creatinine of 0.93, glucose 227. Hemoglobin A1c of 10.9. Lactic acid 1.1. Calcium 9.1, magnesium 1.8, total b ilirubin 0.3, AST of 12, ALT of 31, alkaline phosphatase 75, total protein 7.5, albumin 3.6, globulin 3.9, triglyceride 151, cholesterol 199, LDL of 135, HDL 34, lipase 20. CEA of 1.8. TSH of 1.91, fr ee T4 of 1.25. Ultrasound of the abdomen revealed a very small volume of ascites into the abdomen, not sufficient fo r paracentesis that was done today at 9:17 a.m. this morning. Impression: 1.Minimal ascites. Ultrasound today revealing a small amount of fluid into the abdomen. 2.Possible alcoholic cirrhosis by history and by ascites in the belly. 3.Past medical history significant for diabetes, hypertension, and the patient has no prior colon ca ncer screening. Recommendations: 1.Continue avoidance of alcohol, consider rehab for alcoholics anonymous on discharge. 2.Continue p.o. diet, consider low-sodium diet per se if abdominal girth increases. 3.The patient is to consider colon cancer screening after discharge. YOHANNES/JH Voice ID: [id number] Report ID: [id number]
[2023-01-11] MEDS ORDERED: MORPHINE 2 MG/ML SYR IV PRN (21:29)
[2023-01-12] MEDS: Ringers Lactate 1,000 ML IV SCH ×3 (00:57→11:56)
[2023-01-12 03:40] LABS: Absolute Lymphocytes (CBC) 1.4 K/uL (0.7-4.9); Hematocrit 42.2 % (39.6-49.0); Lymphocytes % 16.6 % (15.3-44.8); MCV 90.4 fL (80-100); MPV 7.9 fL (7.6-11.3); RBC Red Blood Cell Count 4.67 M/uL (4.33-5.43)
[2023-01-12 03:47] LABS: Protime INR 1.19
[2023-01-12 03:54] LABS: Bilirubin Total 0.5 mg/dL (0.2-1.0); Potassium 3.9 mEq/L (3.5-5.1); Protein, Total 6.3 g/dL (6.4-8.2)
[2023-01-12] MEDS: INSULIN -REGULAR HUMAN 50 UNIT/0.5 ML ML SQ SCH ×2 (07:30→11:30)
[2023-01-12] MEDS: CEFTRIAXONE 1,000 MG in NA CHLORIDE 0.9% 50 ML IVPB SCH (08:24)
--- NOTE | 2023-01-12 09:40 | RAD REPORT ---
EXAM DESCRIPTION: CT Abdomen and Pelvis W Contrast CLINICAL HISTORY: Abdominal pain. TECHNIQUE: CT scan of the abdomen and pelvis was performed with intravenous contrast. 5 mm axial gloria ges were obtained along with coronal and sagittal reformatted images. COMPARISON: 12/24/2022. DOSE OPTIMIZATION: This facility uses dose optimization techniques as appropriate to perform exams, i ncluding at least one of the following techniques: 1. Automated exposure control. 2. Adjustment of the mA and/or kV according to patient size (this includes techniques or standardized protocols for targeted exams where dose is matched to the indication/reason for exam, i.e. extremiti es or head). 3. Use of iterative reconstructive technique. FINDINGS: Lung Bases: No active infiltrates. Liver: There is diffuse fatty liver infiltration. Spleen: Normal. Pancreas: Normal. Gallbladder: Normal. Adrenal Glands: Normal. Kidneys: Normal. Retroperitoneal Structures: Normal. Bowel Survey: The stomach is nondistended. There are multiple distended small bowel loops with air-fluid levels. The appendix is unremarkable. There is increased stool identified throughout the colon. Prostate Gland: Normal size. Urinary Bladder: Normal. Peritoneal Cavity: There is a moderate amount of peritoneal ascites which is increased in volume from prior study. Mesenteric Structures: There is moderately severe degenerative changes about the gastric lumen which have increased markedly from prior study.. Abdominal Wall: No hernia. Bony Structures: No suspicious lesions. IMPRESSION: 1. Interval increase in the volume of peritoneal ascites and increase in severity gastri c omental edema. Infectious process cannot be excluded. Paracentesis with Gram stain and culture ma y be of benefit. 2. Increased stool throughout the colon. 3. Diffuse fatty liver infiltration. Electronically signed by: Bud Michael MD 01/11/2023 12:56 AM CDT Due to temporary technical issues with the PACS/Fluency reporting system, reports are being signed by the in house radiologists without review as a courtesy to insure prompt reporting. The interpreting radiologist is fully responsible for the content of the report.
[2023-01-12 10:49] VITALS: O2SAT 93
--- NOTE | 2023-01-12 13:03 | RAD REPORT ---
EXAM DESCRIPTION: US - Paracentesis Proc Guidance - 01/12/2023 11:19 am CLINICAL HISTORY: ascites Ascites COMPARISON: No comparisons FINDINGS: Risk and benefits were explained to the patient. Informed consent was obtained and time-ou t was performed. Patient's abdomen was prepped and draped in the usual sterile fashion. 1% lidocaine was used for loca l anesthetic purposes. A small skin incision was made. A paracentesis catheter was guided into the peroneal cavity in the [facility] lower quadrant under sonographic guidance. A small amount of fluid was sent for requested lab studies. A total of 60 mL ascitic fluid were aspir ated, and samples were sent to the lab for further analysis, as per the submitted orders. The patient tolerated the procedure well. Patient returned to the inpatient unit following the procedure. IMPRESSION: Successful ultrasound-guided diagnostic paracentesis.
--- NOTE | 2023-01-12 15:21 | P.DS ---
Admission Date: 01/11/23 Discharge Date: 01/12/23 Reason for Admission: Abdominal tenderness, ascites Consultations: 1. Gastroenterology 2. Interventional Radiology Procedures: - 01/12/2023 - Paracentesis Hospital Course: DIAGNOSES: # Acute-Subacute Abdominal Pain with Ascites and Gastric Omental Edema # Hyperglycemia in Type II Diabetes Mellitus # Non-Alcoholic Fatty Liver Disease # Hypertension HOSPITAL COURSE: Mr. Patric Ashley is a pleasant 47-year-old male with a past medical history significant for type 2 diabetes mellitus and hypertension who was admitted to the [facility] on 01/11/2023 for abdominal tenderness. He was admitted to the Medicine service. Upon further evaluation, his CT abdomen/pelvis revealed, "1. Interval increase in the volume of peritoneal ascites and increase in severity gastric omental edema. Infectious process cannot be excluded. Paracentesis with Gram stain and culture may be of benefit. 2. Increased stool throughout the colon. 3. Diffuse fatty liver infiltration." He was started empirically on antibiotics to cover peritonitis. Interventional Radiology was consulted and he was evaluated by Dr. Urias. He underwent paracentesis today, and reported significant improvement of his symptoms. Per our lab, results will not be available for at least 3 business days (01/17/2023 at the earliest). He states that he feels better and would like to be discharged home. He was discharged on an additional 5 days of cefdinir to empirically cover peritonitis. Regarding these findings, I have counseled him and his extensively on the different possibilities. I explained that the differential diagnoses is broad and includes, but is not limited to, infection versus malignancy. I have highly advised that he obtain all age-appropriate cancer screening, particularly a colonoscopy. Gastroenterology was consulted and he was evaluated by Dr. Lamb. Dr. Lamb recommended discharge with an outpatient colonoscopy. On 01/12/2023, he was seen on morning rounds and deemed medically stable for discharge. He was discharged with instructions to schedule follow-up appointments with his PCP ([facility]) and with Gastroenterology (Dr. Lamb). He was provided prescriptions for cefdinir. He and his were given the opportunity to ask questions and reported no further questions. Furthermore, all questions were answered to the best of my ability. A copy of this discharge summary will be sent to the above providers to facilitate continuity of care. Today, I personally spent 25 minutes on his case, of which greater than 50% of the time was spent in patient education, counseling, and coordination of care as described above. Vital Signs/Physical Exam: Temp Pulse Resp BP Pulse Ox 97.5 F 74 16 116/75 93 01/12/23 08:00 01/12/23 08:00 01/12/23 08:00 01/12/23 08:00 01/12/23 08:00 General: Alert, In no apparent distress, Oriented x3 HEENT: Atraumatic, Mucous membr. moist/pink, Sclerae nonicteric Neck: JVD not distended Respiratory: Clear to auscultation bilaterally, Normal air movement Cardiovascular: No edema, Regular rate/rhythm, Normal S1 S2, No gallops, No rubs, No murmurs Gastrointestinal: Normal bowel sounds, Soft and benign, No tenderness, No rebound, No guarding, Distended (minimally) Musculoskeletal: No clubbing Integumentary: No rashes Neurological: Normal speech, Normal affect Laboratory Data at Discharge: WBC 8.30 thou/uL (4.3-10.9) 01/12/23 03:04 Hgb 14.1 g/dL (13.6-17.9) 01/12/23 03:04 Hct 42.2 % (39.6-49.0) 01/12/23 03:04 Plt Count 258 thou/uL (152-406) 01/12/23 03:04 PT 13.1 SECONDS (9.5-12.5) H 01/12/23 03:04 INR 1.19 01/12/23 03:04 APTT 30.3 SECONDS (24.3-36.9) 01/11/23 01:56 Sodium 134 mEq/L (136-145) L 01/12/23 03:04 Potassium 3.9 mEq/L (3.5-5.1) 01/12/23 03:04 BUN 11 mg/dL (7-18) 01/12/23 03:04 Creatinine 0.77 mg/dL (0.70-1.30) 01/12/23 03:04 Glucose 156 mg/dL (74-106) H 01/12/23 03:04 Magnesium 1.8 mg/dL (1.6-2.4) 01/10/23 23:30 Total Bilirubin 0.5 mg/dL (0.2-1.0) 01/12/23 03:04 AST 10 U/L (15-37) L 01/12/23 03:04 ALT 23 U/L (16-61) 01/12/23 03:04 Alkaline Phosphatase 63 U/L (45-117) 01/12/23 03:04 Triglycerides 151 mg/dL (<150) H 01/11/23 08:21 Cholesterol 199 mg/dL (<200) 01/11/23 08:21 HDL Cholesterol 34 mg/dL (40-60) L 01/11/23 08:21 Cholesterol/HDL Ratio 5.85 01/11/23 08:21 Lipase 20 U/L (13-75) 01/10/23 23:30 Home Medications: Cefdinir [Cefdinir*] 300 mg PO BID 5 Days #10 cap 01/12/23 Metformin HCl 1 tab PO BID 01/12/23 lisinopriL [Lisinopril] 1 tab PO BEDTIME 01/12/23 New Medications: Cefdinir [Cefdinir*] 300 mg PO BID 5 Days #10 cap Physician Discharge Instructions: 1. Please call and schedule a follow-up appointment with your PCP ([facility]) in 3-5 days 2. Please call and schedule a follow-up appointment with Gastroenterology (Dr. Lamb) in 5-7 days He will schedule you for a colonoscopy to make sure that you do not have colon cancer Please have him review the results of your paracentesis abdominal fluid studies at this appointment Diet: AHA Activity: Ad katerina Followup: NONE,NONE [Primary Care Provider] - Jonathan Lamb MD [ASSOCIATE-ACTIVE - CAN ADMIT] - Time spent managing pt's care (in minutes): 25
[2023-01-12 16:28] VITALS: BP 119/73; TEMP 97.6
--- NOTE | 2023-01-12 18:27 | P.PN ---
Subjective Date of Service: 01/12/23 Chief Complaint: Abdominal tenderness, ascites Subjective: Improving (Sitting in chair. Minimal abdominal pain. Tolerating food. U/S abdomen -> very limited ascites, too little for paracentesis.) Review of Systems 10-point ROS is otherwise unremarkable Gastrointestinal: Abdominal Pain (Improved.) Physical Examination - Vital Signs Temperature: 97.6 F Blood Pressure: 119/73 Pulse: 73 Respirations: 16 Pulse Ox (%): 94 - Physical Exam General: Alert, In no apparent distress, Oriented x3 HEENT: Atraumatic, Normocephalic, PERRLA, EOMI Neck: Supple Respiratory: Normal air movement Cardiovascular: Regular rate/rhythm Gastrointestinal: Soft and benign, No rebound, No guarding, Tenderness (Improved.) Neurological: Normal speech, Normal strength at 5/5 x4 extr Assessment And Plan - Current Problems (Diagnosis) (1) Epigastric abdominal pain Status: Acute (2) Ascites Status: Acute (3) Alcohol abuse Status: Acute (4) Cirrhosis, alcoholic Status: Acute - Plan REC 1) GI clinic f/u Physician Review: Patient Assessed, Agree with Above Assessment and Plan
--- NOTE | 2023-01-15 12:45 | EKG ---
Test Date: 2023-01-11 Test Time: 03:11:10 Yeast Fermentation Attendant: JUAN CARLOS MEASUREMENT RESULTS: Intervals: Rate: 67 [place]: 184 QRSD: 86 QT: 414 QTc: 437 [place]: P: 36 [place]: 184 QRS: 73 T: 41 INTERPRETIVE STATEMENTS: Normal sinus rhythm Normal ECG No previous ECG available for comparison Electronically Signed On 01-15-23 12:37:57 CDT by Schuyler Hernández
== END 2023-01-12 16:50 | disposition home or self-care (01) ==
LOC: ER 20:40 → ERHOLD 01-11 02:14 → 2ND 01-11 06:05
PROVIDERS: ADMIT Internal Medicine; ATTEND Internal Medicine
PROC: 0W9G3ZX Drainage of Peritoneal Cavity, Percutaneous Approach, Diagnostic (ICD-10-PCS; principal; 2023-01-12)
DX: K70.31 Alcoholic cirrhosis of liver with ascites (principal); K76.0 Fatty (change of) liver, not elsewhere classified; R10.819 Abdominal tenderness, unspecified site; E11.65 Type 2 diabetes mellitus with hyperglycemia; I10 Essential (primary) hypertension; F10.10 Alcohol abuse, uncomplicated; Z23 Encounter for immunization; Z79.4 Long term (current) use of insulin
CPT/HCPCS: 36415; 49083; 74177; 76705; 80053; 80061; 81003; 82042; 82150; 82378; 82945; 82947; 83036; 83605; 83615; 83690; 83735; 84157; 84439; 84443; 85025; 85610; 85730; 86301; 86304; 87040; 88108; 88305; 93005; G0378; J0696; J1815; J2270; J2405; J7120; Q9967